=== PATIENT | female | born 1950 | race Caucasian/White ===

== ENCOUNTER → 2019-04-24 16:49 | Outpatient (BNVA) | payer MEDICARE, SELFPAY | PROVIDERS: Family Provider Nurse Practitioner; PCP Nurse Practitioner; Visit Provider Nurse Practitioner | DX: I10 Essential (primary) hypertension (principal); E11.42 Type 2 diabetes mellitus with diabetic polyneuropathy | CPT/HCPCS: 80053; 80061; 83036; 84443 ==

== ENCOUNTER 2019-05-14 12:44 | Outpatient (CLI) | payer MEDICARE, SELFPAY ==
--- NOTE | 2019-05-14 12:53 | CT_ITS ---
WS: [id number] CT LUMBAR SPINE, noncontrast. HISTORY: S/P LUMBAR SPINAL FUSION TECHNIQUE: Contiguous 2.5 mm axial imaging are performed. Sagittal and coronal reformats are submitte d and reviewed. All CT scans at [facility] use at least one of these dose optimization te chniques: automated exposure control; mA and/or kV adjustment per patient size (includes targeted exa ms where dose is matched to clinical indication); or iterative reconstruction. IV contrast: None DLP: 2179.15 mGy.cm COMPARISON: 01/20/2019 RIGHT convex rotoscoliosis lumbar spine. Posterior lumbar fusion at L4-5. Fusion hardware has been pl aced since 01/20/2019. Large posterior laminectomy defects at the fusion level. L1-2: Normal. L2-3: Mild asymmetric disc bulging. No significant stenosis. L3-4: Asymmetric disc bulging to the LEFT. Mild central and foraminal stenosis. L4-5: Widely patent thecal sac due to the large laminectomy defect. Marked facet joint arthropathy. L 4 anterolisthesis by 7.3 mm. L5-S1: No stenosis. Scattered calcifications within the aorta. CT/CT lumbar spine wo con* [id number] IMPRESSION: 1. Interval posterior lumbar fusion at L4-5 with large laminectomy defects. 2. Grade 1 anterolisthesis of L4 by 7.3 mm is stable. 3. No significant residual high-grade stenosis.
== END 2019-05-14 12:45 | disposition home or self-care (01) ==
LOC: RAD 12:50
PROVIDERS: Family Provider Nurse Practitioner; PCP Nurse Practitioner; Visit Provider Licensed Practical Nurse
DX: Z98.1 Arthrodesis status (principal)
CPT/HCPCS: 72131

== ENCOUNTER 2019-08-08 09:03 | Outpatient (CLI) | payer MEDICARE, SELFPAY ==
--- NOTE | 2019-08-08 09:30 | CT_ITS ---
WS: [id number] CT LUMBAR SPINE TECHNIQUE: Noncontrast CT of the lumbar spine with coronal and sagittal reformatted images. CLINICAL INFORMATION: s/p lumbar spinal fusion COMPARISON: CT May 14, 2019 DLP: 1862.[address] scans at [facility] use at least one of these dose optimization techniques: automat ed exposure control; mA and/or kV adjustment per patient size (includes targeted exams where dose is matched to clinical indication); or iterative reconstruction. FINDINGS: S-shaped lumbar scoliosis convex right in the upper lumbar spine and convex left in the lower lumbar spine. Postoperative changes pedicle screw fixation L4-5 with interconnecting rods. Decompressive phillips inectomy defects. Vacuum disc phenomenon L4-5 with stable grade 1 anterolisthesis measuring 7.5 mm. D egenerative endplate-type changes L4-5 eccentric to the right with sclerosis. Hardware appears in goo d position. No evidence of hardware loosening. L1-L2: Mild annular bulging. Spinal canal and foramen are patent. Mild facet arthropathy. L2-L3: Slight retrolisthesis. Annular bulging with narrowing of the left subarticular recess. Mild le ft foraminal narrowing. Right foramen is patent. Mild to moderate facet arthropathy. L3-L4: Mild annular bulging with mild central canal stenosis. Moderate facet arthropathy with ligamen t flavum hypertrophy. Mild left foraminal narrowing with small left foraminal protrusion. Right federico en is patent. L4-L5: Pedicle screw fixation. Stable grade 1 anterolisthesis. Spinal canal is patent with decompress eliana laminectomies. Mild right greater than left foraminal narrowing. L5-S1: Mild annular bulging. Slight retrolisthesis. Spinal canal and foramen are patent. Moderate to advanced right facet arthropathy. Visualized pelvic bony structures: Normal. Paravertebral soft tissues: Normal. CT/CT lumbar spine wo con* [id number] IMPRESSION: 1. Stable postoperative changes L4-5 pedicle screw fixation with interconnecti ng rods. No evidence of hardware loosening. Associated decompressive laminectom ies. 2. Stable 7 mm anterolisthesis L4 on L5. 3. Mild central canal stenosis L3-4. 4. Mild left L3-4 foraminal narrowing. Small left foraminal protrusion. 5. Mild right greater than left L4-5 foraminal narrowing.
== END 2019-08-08 09:04 | disposition home or self-care (01) ==
LOC: RADWPI 09:06
PROVIDERS: Family Provider Nurse Practitioner; PCP Nurse Practitioner; Visit Provider Licensed Practical Nurse
DX: Z98.1 Arthrodesis status (principal); M48.061 Spinal stenosis, lumbar region without neurogenic claudication
CPT/HCPCS: 72131

== ENCOUNTER → 2019-08-27 13:47 | Outpatient (BNVA) | payer MEDICARE, SELFPAY | PROVIDERS: Family Provider Nurse Practitioner; PCP Nurse Practitioner; Visit Provider Nurse Practitioner | DX: E11.42 Type 2 diabetes mellitus with diabetic polyneuropathy (principal); M34.9 Systemic sclerosis, unspecified; I10 Essential (primary) hypertension; K21.9 Gastro-esophageal reflux disease without esophagitis; F41.9 Anxiety disorder, unspecified | CPT/HCPCS: 80053; 80061; 81000; 82044; 83036; 84443; 85025 ==

== ENCOUNTER 2019-11-12 13:39 | Outpatient (CLI) | payer MEDICARE, SELFPAY ==
--- NOTE | 2019-11-12 13:45 | CT_ITS ---
WS: [id number] CT LUMBAR SPINE TECHNIQUE: Noncontrast CT of the lumbar spine with coronal and sagittal reformatted images. CLINICAL INFORMATION: lumbar pain COMPARISON: CT August 08, 2019 DLP: 1739.[address] scans at [facility] use at least one of these dose optimization techniques: automat ed exposure control; mA and/or kV adjustment per patient size (includes targeted exams where dose is matched to clinical indication); or iterative reconstruction. FINDINGS: Stable S-shaped lumbar scoliosis. Postoperative changes pedicle screw fixation L4-5 with interconnect ing rods. Decompressive laminectomy defects. Vacuum disc phenomenon L4-5 with stable grade 1 anteroli sthesis measuring 7.5 mm. Degenerative endplate-type changes L4-5 eccentric to the right with scleros is. Hardware appears in good position. No evidence of hardware loosening. L1-L2: Mild annular bulging. Spinal canal and foramen are patent. Mild facet arthropathy. L2-L3: Slight retrolisthesis. Annular bulging with narrowing of the left subarticular recess. Mild le ft foraminal narrowing. Right foramen is patent. Mild to moderate facet arthropathy. L3-L4: Mild annular bulging with mild central canal stenosis. Moderate facet arthropathy with ligamen t flavum hypertrophy. Mild left foraminal narrowing with small left foraminal protrusion. Right federico en is patent. L4-L5: Pedicle screw fixation. Stable grade 1 anterolisthesis. Spinal canal is patent with decompress eliana laminectomies. Mild right greater than left foraminal narrowing. L5-S1: Mild annular bulging. Slight retrolisthesis. Spinal canal and foramen are patent. Moderate to advanced right facet arthropathy. Visualized pelvic bony structures: Normal. Paravertebral soft tissues: Normal CT/CT lumbar spine wo con* [id number] IMPRESSION: 1. Stable postoperative changes L4-5 pedicle screw fixation with interconnectin g rods and decompressive laminectomies. No evidence of hardware loosening. 2. Stable 7 mm anterolisthesis L4 on L5. 3. Mild central canal stenosis L3-4. Mild left L3-4 foraminal narrowing with sm all left foraminal protrusion unchanged. 5. Mild right L4-5 foraminal narrowing.
== END 2019-11-12 13:40 | disposition home or self-care (01) ==
LOC: RADWPI 13:42
PROVIDERS: Family Provider Nurse Practitioner; PCP Nurse Practitioner; Visit Provider Specialist
DX: M48.061 Spinal stenosis, lumbar region without neurogenic claudication (principal); M47.896 Other spondylosis, lumbar region
CPT/HCPCS: 72131

== ENCOUNTER → 2019-11-17 08:55 | Outpatient (BNVA) | payer MEDICARE, SELFPAY | PROVIDERS: Family Provider Nurse Practitioner; PCP Nurse Practitioner; Visit Provider Nurse Practitioner | DX: I10 Essential (primary) hypertension (principal); K21.9 Gastro-esophageal reflux disease without esophagitis; F41.9 Anxiety disorder, unspecified; M43.16 Spondylolisthesis, lumbar region; E11.42 Type 2 diabetes mellitus with diabetic polyneuropathy; J44.9 Chronic obstructive pulmonary disease, unspecified; Z98.890 Other specified postprocedural states; M34.9 Systemic sclerosis, unspecified; F32.9 Major depressive disorder, single episode, unspecified | CPT/HCPCS: 80053 ==

== ENCOUNTER 2019-11-21 12:55 | Outpatient (CLI) | payer MEDICARE, SELFPAY ==
--- NOTE | 2019-11-21 13:05 | XR_ITS ---
WS: [id number] Thoracic spine, 3 views, 11/21/2019 Clinical Data: pain Comparison: None. Findings: No compression fractures are seen. The disc heights are normal. Osteoporosis is present. The paravertebral regions are unremarkable. There are surgical clips in the region of the gastroesophageal junction and also in the right upper quadrant. XR/XR thoracic spine 3V* [id number] Impression: Negative thoracic spine.
--- NOTE | 2019-11-21 13:05 | XR_ITS ---
WS: [id number] Lumbar spine, 3 views, 11/21/2019 Clinical Data: pain Comparison: Lumbar spine, 03/18/2019. Findings: No compression fractures are seen. There is osteoporosis of all lumbar vertebral bodies along with mi nimal osteoarthritic change There is degenerative disc narrowing at L4-L5. There is a 0.7 cm subluxat ion of L4 on L5. There is a posterior lumbar fusion with bilateral pedicle screws at the L4 and L5 co nnected with Lidya rods. The patient has had an L4 laminectomy. There is a dextroscoliosis.. The transverse processes and SI joints are normal. The bladder is full. There is a large amount of fecal material throughout the colon. XR/XR lumbar spine 2-3V* [id number] Impression: 1. Negative for compression fracture 2. No change in posterior lumbar fusion, subluxation at L4-L5 3. Osteoporosis and minimal osteoarthritis. 4. Dextroscoliosis.
--- NOTE | 2019-11-21 13:05 | XR_ITS ---
WS: [id number] Chest with right rib detail, 11/21/2019 Clinical Data: pain Comparison: PA and lateral chest, 01/14/2019. Findings: The lungs show no nodules, masses, or effusions. The heart is normal. No pneumonia or pneumothorax is seen. There are surgical clips in the region of the gastroesophageal junction and the right upper quadrant. There are posterior lateral rib fractures of the right fifth, sixth, seventh and eighth ribs. No pneu mothorax is seen and there is no subcutaneous emphysema. 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 The soft tissues are nonremarkable. XR/XR ribs RT mn 3V w CXR1V [id number] Impression: 1. Right posterior lateral rib fractures, ribs 5 through 8. 2. Negative for acute cardiopulmonary disease.
== END 2019-11-21 12:56 | disposition home or self-care (01) ==
PROVIDERS: Family Provider Nurse Practitioner; PCP Nurse Practitioner; Visit Provider Nurse Practitioner
DX: M54.6 Pain in thoracic spine (principal); M54.5 Low back pain; M81.0 Age-related osteoporosis without current pathological fracture; M41.86 Other forms of scoliosis, lumbar region; S22.41XA Multiple fractures of ribs, right side, initial encounter for closed fracture; X58.XXXA Exposure to other specified factors, initial encounter
CPT/HCPCS: 71101; 72072; 72100

== ENCOUNTER → 2019-12-19 09:09 | Outpatient (BNVA) | payer MEDICARE, SELFPAY | PROVIDERS: Family Provider Nurse Practitioner; PCP Nurse Practitioner; Visit Provider Internal Medicine | DX: Z20.828 Contact with and (suspected) exposure to other viral communicable diseases (principal) | CPT/HCPCS: 87635 ==

== ENCOUNTER 2019-12-22 08:36 | Outpatient (CLI) | payer MEDICARE, SELFPAY ==
--- NOTE | 2019-12-22 08:45 | USCV_ITS ---
Yazmin Mcneil Age: 69 Gender: F : 1950 Exam Date: 12/22/2019 09:01 Ordering Phys: Armando Penn Technologist: Marciano Tovar [place] [facility] [place]: TACHYCARD[place] BP: / HR: 72 Rhythm: Sinus Technical Quality: Fair MEASUREMENTS (Male / Female) Normal Values 2D ECHO LV Diastolic Diameter PLAX 2.8 cm 4.2 - 5.9 / 3.9 - 5.3 cm LV Systolic Diameter PLAX 1.7 cm IVS Diastolic Thickness 0.8 cm 0.6 - 1.0 / 0.6 - 0.9 cm IVS Systolic Thickness 1.0 cm LVPW Diastolic Thickness 0.7 cm 0.6 - 1.0 / 0.6 - 0.9 cm LVPW Systolic Thickness 1.2 cm LVOT Diameter 2.0 cm LV Ejection Fraction 2D Teich 72.2 % LV Ejection Fraction MOD 2C 59.2 % LV Ejection Fraction 2C AL 59.3 % LA Diameter 3.7 cm LA Width 3.0 cm LA Height 4.0 cm RA Width 3.5 cm RA Height 3.8 cm Aorta at Sinotubular Diameter 1.0 cm M-MODE LV Diastolic Diameter MM 4.4 cm 4.2 - 5.9 / 3.9 - 5.3 cm LV Systolic Diameter MM 2.3 cm LV Ejection Fraction MM Teich 78.2 % IVS Diastolic Thickness MM 1.1 cm 0.6 - 1.0 / 0.6 - 0.9 cm IVS Systolic Thickness MM 1.5 cm LVPW Diastolic Thickness MM 1.2 cm 0.6 - 1.0 / 0.6 - 0.9 cm LVPW Systolic Thickness MM 1.4 cm RV Diastolic Diameter MM 0.0 cm Aortic Annulus Diameter 3.0 cm LA Ao Ratio MM 1.3 MV E Point Septal Separation 0.4 cm DOPPLER AV Peak Velocity 126.0 cm/s LVOT Peak Velocity 99.0 cm/s AV Area Cont Eq vti 2.4 cm squared AV Area Cont Eq pk 2.5 cm squared MV Area PHT 5.0 cm squared Mitral E to A Ratio 0.7 MV E' Velocity 8.0 cm/s Mitral E to MV E' Ratio 11.4 Mitral E to LV E' Lateral Ratio 9.3 Mitral E to LV E' Septal Ratio 14.9 TR Peak Velocity 244.0 cm/s TR Peak Gradient 23.8 mmHg TV Peak E Velocity 135.0 cm/s Right Atrial Pressure 3.0 mmHg Pulmonary Artery Systolic Pressu 26.8 mmHg PV Peak Velocity 87.0 cm/s FINDINGS Left Ventricle Normal left ventricular size, systolic function and wall thickness, with no regional wall motion abnormalities. Left ventricular ejection fraction is estimated at 65%. Grade I diastolic dysfunction (abnormal relaxation filling pattern), normal to mildly elevated filling pressures. Right Ventricle Normal right ventricular size and systolic function. Right ventricular systolic pressure 26.8 mmHg, assuming right atrial pressure of 3 mmHg. Right Atrium Right atrium not well visualized. Left Atrium Normal left atrial size. Mitral Valve Structurally normal mitral valve. No mitral valve stenosis. Trace-mild mitral valve regurgitation. Aortic Valve Structurally normal trileaflet aortic valve. No aortic valve stenosis. No aortic valve regurgitation. Tricuspid Valve Structurally normal tricuspid valve. Trace tricuspid valve regurgitation. Pulmonic Valve Pulmonic valve not well visualized. No significant pulmonary valve regurgitation. Pericardium No pericardial effusion. Inferior vena cava not well visualized. Aorta Normal size aortic root and proximal ascending aorta. CONCLUSIONS 1. Normal left ventricular size, systolic function and wall thickness, with no regional wall motion abnormalities. Left ventricular ejection fraction is estimated at 65%. Grade I diastolic dysfunction (abnormal relaxation filling pattern), normal to mildly elevated filling pressures. 2. Mildly increased pulmonary artery pressure estimated at 27 mmHg. 3. No significant valvular abnormality. 4. When compared to previous echocardiogram dated 12/18/2018, there may not have been any significant change. Angela Gavin MD (Electronically Signed) Final Date: 22 December 2019 16:18 S
--- NOTE | 2019-12-22 10:20 | SPIP_ITS ---
Date of Study:12/22/19 Date of Dictation: MECHANICS: Forced vital capacity (FVC) is normal. Forced expiratory volume in one second (FEV1) is normal. FEV1/FVC is normal. FLOW VOLUME LOOP: Normal. LUNG VOLUMES: Not measured DIFFUSING CAPACITY FOR CARBON MONOXIDE: Not measured. INTERPRETATION: The spirometry is normal. MTDD
== END 2019-12-22 08:37 | disposition home or self-care (01) ==
LOC: US 08:39
PROVIDERS: PCP Nurse Practitioner; Visit Provider Nurse Practitioner
DX: R00.0 Tachycardia, unspecified (principal); I51.81 Takotsubo syndrome
CPT/HCPCS: 93306; 94010

== ENCOUNTER → 2020-02-20 11:33 | Outpatient (BNVA) | payer MEDICARE, SELFPAY | PROVIDERS: PCP Nurse Practitioner; Visit Provider Nurse Practitioner | DX: E11.42 Type 2 diabetes mellitus with diabetic polyneuropathy (principal); I10 Essential (primary) hypertension | CPT/HCPCS: 80061; 81000; 83036; 85025 ==

== ENCOUNTER → 2020-05-10 09:39 | Outpatient (BNVA) | payer MEDICARE, SELFPAY | PROVIDERS: PCP Nurse Practitioner; Visit Provider Nurse Practitioner | DX: M25.531 Pain in right wrist (principal); M25.512 Pain in left shoulder; M25.562 Pain in left knee; I10 Essential (primary) hypertension; E11.42 Type 2 diabetes mellitus with diabetic polyneuropathy; K21.9 Gastro-esophageal reflux disease without esophagitis; Z79.52 Long term (current) use of systemic steroids | CPT/HCPCS: 73030; 73110; 73562; 80053; 81000; 83036 ==

== ENCOUNTER → 2020-06-09 09:19 | Outpatient (BNVA) | payer MEDICARE, SELFPAY | PROVIDERS: PCP Nurse Practitioner; Visit Provider Nurse Practitioner | DX: M25.531 Pain in right wrist (principal) | CPT/HCPCS: 73110 ==

== ENCOUNTER → 2020-06-15 10:52 | Outpatient (BNVA) | payer MEDICARE, SELFPAY | PROVIDERS: PCP Nurse Practitioner; Referring Provider Nurse Practitioner; Visit Provider Orthopaedic Surgery | DX: T14.8XXA Other injury of unspecified body region, initial encounter (principal) | CPT/HCPCS: 73130 ==

== ENCOUNTER 2020-07-02 12:17 | Outpatient (CLI) | payer MEDICARE, SELFPAY ==
--- NOTE | 2020-07-02 12:21 | XR_ITS ---
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 FINDINGS: The left forearm bone mineral density measures 0.74. This corresponds to a T score score of -1.5 and Z score of 0.2. Left femoral neck bone mineral density measures 0.957 g/cm2. This corresponds to a T score of -0.4 an d Z score of 0.8. Right femoral neck bone mineral density measures 1.017 g/cm2. This corresponds to a T score 0.1of and Z score of 1.3. Mean femoral neck bone mineral density measures 0.987 g/cm2. This corresponds to a T score of -0.2 an d Z score of 1.1. XR/XR DEXA axial skeleton* [id number] IMPRESSION: Osteopenia in the left forearm. Normal bone mineralization in the femoral necks . Patient's FRAX calculated 10 year probability for major osteoporotic fracture i s 19.7 % and osteoporotic hip fracture is 3.1%.
== END 2020-07-02 12:18 | disposition home or self-care (01) ==
LOC: RADWPI 12:20
PROVIDERS: PCP Nurse Practitioner; Visit Provider Nurse Practitioner
DX: M85.832 Other specified disorders of bone density and structure, left forearm (principal); Z79.52 Long term (current) use of systemic steroids
CPT/HCPCS: 77080

== ENCOUNTER → 2020-09-29 14:56 | Outpatient (BNVA) | payer MEDICARE, SELFPAY | PROVIDERS: PCP Nurse Practitioner; Visit Provider Nurse Practitioner | DX: E11.42 Type 2 diabetes mellitus with diabetic polyneuropathy (principal); M34.9 Systemic sclerosis, unspecified; I10 Essential (primary) hypertension; M25.531 Pain in right wrist; M79.641 Pain in right hand | CPT/HCPCS: 73110; 73130; 80053; 80061; 82043; 83036; 84443; 85025; 85651 ==

== ENCOUNTER 2020-10-06 13:21 | Emergency (ER) | payer MEDICARE, SELFPAY ==
[2020-10-06] VITALS (7 sets, daily range): BP systolic 98–132; BP diastolic 61–91; PULSE 80–88; RESP 16–20; TEMP 36.8; O2SAT 93–99; BMI 29.7
--- NOTE | 2020-10-06 13:57 | PC.NURSE ---
Patient checked in waiting room and had O2 Sat of 80 % on room air patient reports she uses O2 at night. Patient placed on 02 at 2l.
--- NOTE | 2020-10-06 14:38 | ECG_ITS ---
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 Measurements Intervals [place] Rate: 85 P: 53 GA: 152 QRS: -12 QRSD: 78 T: 53 QT: 345 QTc: 411 Interpretive Statements SINUS RHYTHM MODERATE VOLTAGE CRITERIA FOR LVH, CONSIDER NORMAL VARIANT [MEETS CRITERIA IN ONE OF: R(aVL), S(V1), R(V5), R(V5/V6)+S(V1)] NONSPECIFIC T-WAVE ABNORMALITY Compared to ECG 01/31/2019 15:04:06 T-wave abnormality now present Myocardial infarct finding no longer present Electronically Signed On 10-07-2020 7:02:02 CDT by Angela Gavin M.D. [id number] f
--- NOTE | 2020-10-06 14:38 | XR_ITS ---
WS: [id number] Portable AP upright chest, 10/06/2020 Clinical Data: chest pain Comparison: PA chest, 11/21/2019 Findings: There is a minimal patchy opacity in the left upper lobe No nodules, masses or effusions ar e seen. The heart is normal. The pulmonary vascularity is not increased. No pneumonia or pneumothorax is seen. The aortic arch and descending aorta show tortuosity. There are clips in the upper abdomen from probable gastroesophageal surgery. There are healed right lateral rib fractures of the fifth, si xth and seventh ribs. XR/XR chest 1V portable [id number] Impression: 1. Minimal patchy opacity in left upper lobe and recommend follow-up chest x-ra y in 2-3 days to evaluate for pneumonia. 2. Atherosclerosis.
[2020-10-06 14:53] LABS: ABG PH Result 7.45 (7.35-7.45); Alveolar-Arterial Oxygen Gradi 10.4 mmHg (5-10); Arterial Blood Gas Hematocrit 37.7 % (37-47); Base Excess ABG 4.9 mmol/L (-2.0-2.0); Blood Gas Operator Identificat AMH; Blood Gas Sample Site Brachial, right; Blood Gas Sample Type Arterial; Carboxyhemoglobin 0.4 %THgb (0.4-20.1); HCO3 ABG 29.4 mmol/L (22-26); HGB O2 Sat 91.6 % (95-100); Ionized Calcium Level - ABG 1.2 mmol/L (1.1-1.4); Methemoglobin 0.7 % (0.4-1.5); Oxygen Device NC; Oxygen Saturation ABG 92.6; Potassium Level - ABG 2.9 mmol/L (3.5-5.0); Total Hemoglobin 12.3 g/dL (12-16)
--- NOTE | 2020-10-06 15:21 | W.ED.SOB ---
HPI - SOB/Dyspnea General: Chief Complaint: Shortness of Breath/Dyspnea Stated Complaint: SOB, LOW O2 Time Seen by Provider: 10/06/20 14:29 Source: patient Mode of arrival: ambulatory Limitations: no limitations History of Present Illness: HPI Narrative: Patient states she started short of breath 2 days ago. She states she has had some wheezing recently. She states her temperature at home was 99-100. However, her temperature here was normal. She also has chronic substernal chest pain that she states is due to her chronic esophageal scleroderma. She also has a history of COPD and wears oxygen at 2 L/min at night. She is up-to-date on her Covid vaccines. She is not on any steroids. She states she is allergic to Dilaudid, morphine, codeine, metronidazole, sulfa. She has not had an aspirin today. She states she quit smoking 20 years ago. Her oxygen saturation is 98% on 2 L by nasal cannula. MD elicited complaint: shortness of breath and cough Pertinent past history: COPD Onset (ago): day(s) (2) Timing: intermittent Severity: moderate Exacerbating factors: exertion Relieving factors: oxygen and rest Known history of: COPD and other (Scleroderma) Associated symptoms: Reports chest pain; Deny abdominal pain, chest congestion, cough, diaphoresis, extremity pain, myalgias, nausea, palpitations, paresthesias, syncope or vomiting Related Data: Home oxygen amount: 2 liters (At night) Review of Systems Const: Denies: diaphoresis Eyes: Denies: change in vision ENMT: Denies: throat pain Card: Reports: chest pain and dyspnea on exertion; Denies: palpitations, edema or syncope Resp: Reports: dyspnea and wheezing; Denies: productive cough or chest congestion GI: Denies: abdominal pain, nausea or vomiting : Denies: flank pain Musc: Denies: extremity pain Skin/Breast: Denies: rash or pruritus Neuro: Denies: headache(s) or numbness in extremities Psych: Denies: anxiety Donald/Lymph: Denies: enlarged lymph nodes PFSH ED PFSH: Medical History Acid reflux Anxiety and depression Benign hypertension CKD (chronic kidney disease) COPD mixed type Fibromyalgia Gastro-esophageal reflux disease without esophagitis 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 Nocturnal hypoxemia Spondylolisthesis, lumbar region Type 2 diabetes mellitus with diabetic polyneuropathy Surgical History History of abdominal surgery 1981 small bowel and gallbladder History of colonoscopy 2018 History of hysterectomy with BSO age 39 History of inguinal hernia Left History of lumbar surgery L4-L5/fusion/fixation;February 03, 2019;[facility] [place] History of mastectomy Bilateral 1990 History of rotator cuff surgery left Family History Brother Cancer Family/Other Hypertension Mother Alzheimer disease Father Heart disease Social History Smoking and tobacco status: former smoker Second hand smoke exposure: Yes Smoking risk assessment/counseling performed?: No Alcohol intake: never Desire information about alcohol rehabilitation?: No Counseling given: No Desire information about substance/drug rehabilitation?: No Counseling given: No Adopted: No Caregiver/support person: No Lives independently: Yes Household members: spouse Housing: House Marital status: Number of children: 1 Current occupational status: retired History of recent travel: No Current gender identity: Female Physical Exam Const: COMMON NORMALS: no acute distress, patient oriented x3, no limitations and well nourished EXAM LIMITATIONS: no altered mental status GENERAL APPEARANCE: cooperative HENMT: COMMON NORMALS: normocephalic and atraumatic HEAD & SCALP: normocephalic and atraumatic FACE & SINUS: normal facial exam Eye: COMMON NORMALS: EOMs intact bilaterally Neck/C-Spine: COMMON NORMALS: full ROM, no lymphadenopathy, supple and no meningeal signs GENERAL: Yes normal visual inspection Lymph: LYMPHATIC: no lymphadenopathy noted Chest: COMMONS NORMALS: normal inspection of the chest and normal palpation of entire chest wall CHEST: No Ecchymosis present and No rash Resp: COMMON NORMALS: normal respiratory effort and No retractions EFFORT & INSPECTION: No respiratory distress AUSCULTATION: other (Rare crackles in the bases bilaterally, no wheezing. No respiratory distre) OTHER: Patient reportedly had oxygen saturation of 78% on room air in triage. Her oxygen saturation is 98% on 2 L by nasal cannula. Cardio: COMMON NORMALS: regular rate, regular rhythm and Peripheral pulses 2+ throughout JUGULAR VENOUS DISTENTION: no JVD RATE: regular rate RHYTHM: regular rhythm PERIPHERAL PULSES: Peripheral pulses 2+ throughout GI: COMMON NORMALS: Normal to inspection, nondistended, normoactive bowel sounds present and non-tender : COMMON NORMALS: Yes no CVA tenderness BLADDER/KIDNEY EXAM: Yes no CVA tenderness Back/Pelvis: COMMON NORMALS: no CVA tenderness Extremity: COMMON NORMALS: normal to inspection, full ROM and capillary refill normal Neuro: COMMON NORMALS: patient oriented x3, CN's II-XII intact bilaterally, no focal motor deficits and no sensory deficits noted MENINGEAL SIGNS: Yes no meningeal signs Psych: COMMON NORMALS: mental status grossly normal and Normal thought process present THOUGHT PROCESS: Normal thought process present Skin: COMMON NORMALS: no rashes or lesions noted and no wounds GENERAL SKIN EXAM: no rashes or lesions noted Course Vital Signs: Vital signs: Vital Signs Temperature 98.2 F 10/06/20 14:02 Pulse Rate 80 10/06/20 18:05 Respiratory Rate 18 10/06/20 18:05 Blood Pressure 126/80 10/06/20 18:05 Pulse Oximetry 95 10/06/20 18:05 MDM - SOB/Dyspnea MDM Narrative: Medical decision making narrative: 1840: Patient declined admission. I recommend admission for her hypoxia and pneumonia diagnosis. CT angiogram showed no pulmonary embolus. Patient requests that IV antibiotics be given patient be discharged home with oral antibiotic prescription. Lab Data: Attestation: I reviewed the patient's lab results. Labs: Lab Results 10/06/20 10/06/20 10/06/20 Range/Units 14:41 15:25 15:48 WBC 9.6 (4.0-10.0) 10^3/ uL RBC 4.32 (4.1-5.3) 10^6/u L Hgb 12.4 (11.5-15.3) g/dL Hct 39.2 (37.0-47.0) % MCV 90.7 (81-99) fL MCH 28.7 (28.0-34.0) pg MCHC 31.6 (30.0-36.0) g/dL RDW 13.1 (12.1-15.1) % Plt Count 448 H (130-400) 10^3/c mm MPV 9.5 (7.4-10.4) fL Neut % (Auto) 60.6 % Lymph % (Auto) 13.5 % Bartholomew % (Auto) 10.3 % Eos % (Auto) 14.5 % Baso % (Auto) 0.6 % Neut # (Auto) 5.79 (1.8-7.7) 10^3/u L Lymph # (Auto) 1.3 (0.8-4.8) 10^3/u L Bartholomew # (Auto) 1.0 H (0.2-0.9) 10^3/u L Eos # (Auto) 1.4 H (0.0-0.8) 10^3/u L Baso # (Auto) 0.1 (0.0-0.1) 10^3/u L Nucleated RBC % (a uto) 0 % Nucleated RBCs # 0.0 /100WBC PT (12.1-14.9) SECO NDS INR (0.8-1.2) APTT (23.9-36.7) SECO NDS D-Dimer (0-0.59) ug/mIFE U Specimen Type Arterial Sample Site Brachial, right ABG pH 7.45 (7.35-7.45) ABG pCO2 42.0 (35-45) mmHg ABG pO2 68.0 L (80.0-100.0) mmH g ABG HCO3 29.4 H (22-26) mmol/L ABG O2 Saturation 92.6 ABG Base Excess 4.9 H (-2.0-2.0) mmol/ L Ismael Test N/a A-a O2 Gradient 10.4 H (5-10) mmHg Hematocrit 37.7 (37-47) % Hgb O2 Saturation 91.6 L (95-100) % Carboxyhemoglobin 0.4 (0.4-20.1) %THgb Methemoglobin 0.7 (0.4-1.5) % Total Hemoglobin 12.3 (12-16) g/dL Sodium 135.0 (131-143) mmol/L Potassium 2.9 L (3.5-5.0) mmol/L Glucose 146.0 H (70-115) mg/dL Ionized Calcium 1.2 (1.1-1.4) mmol/L O2 Delivery Device Nc O2 Liters/Min 2.0 % FiO2 28.0 % Supervisor Wall Mirror Department ID Amh Chloride (98-107) mmol/L Carbon Dioxide (22-29) mmol/L Anion Gap (5-19) BUN (8-23) mg/dL Creatinine (0.5-0.9) mg/dL GFR Calculation (90-130) mL/min Calculated Osmolal ity (285-295) mOsm/k g Calcium (8.5-10.5) mg/dL Troponin T Baselin e (0-10) ng/L Troponin T 120 Min beaver (0-10) ng/L Delta Troponin T (0-10) ABS# NT-Pro-B Natriuret Pep (0-125) pg/mL SARS-CoV-2 Ag (Rap id) Negative (Negative) 10/06/20 10/06/20 10/06/20 Range/Units 15:48 15:48 15:48 WBC (4.0-10.0) 10^3/ uL RBC (4.1-5.3) 10^6/u L Hgb (11.5-15.3) g/dL Hct (37.0-47.0) % MCV (81-99) fL MCH (28.0-34.0) pg MCHC (30.0-36.0) g/dL RDW (12.1-15.1) % Plt Count (130-400) 10^3/c mm MPV (7.4-10.4) fL Neut % (Auto) % Lymph % (Auto) % Bartholomew % (Auto) % Eos % (Auto) % Baso % (Auto) % Neut # (Auto) (1.8-7.7) 10^3/u L Lymph # (Auto) (0.8-4.8) 10^3/u L Bartholomew # (Auto) (0.2-0.9) 10^3/u L Eos # (Auto) (0.0-0.8) 10^3/u L Baso # (Auto) (0.0-0.1) 10^3/u L Nucleated RBC % (a uto) % Nucleated RBCs # /100WBC PT 13.70 (12.1-14.9) SECO NDS INR 1.02 (0.8-1.2) APTT 31.5 (23.9-36.7) SECO NDS D-Dimer 3.23 H (0-0.59) ug/mIFE U Specimen Type Sample Site ABG pH (7.35-7.45) ABG pCO2 (35-45) mmHg ABG pO2 (80.0-100.0) mmH g ABG HCO3 (22-26) mmol/L ABG O2 Saturation ABG Base Excess (-2.0-2.0) mmol/ L Ismael Test A-a O2 Gradient (5-10) mmHg Hematocrit (37-47) % Hgb O2 Saturation (95-100) % Carboxyhemoglobin (0.4-20.1) %THgb Methemoglobin (0.4-1.5) % Total Hemoglobin (12-16) g/dL Sodium 134 L (131-143) mmol/L Potassium 3.7 (3.5-5.0) mmol/L Glucose 107 (70-115) mg/dL Ionized Calcium (1.1-1.4) mmol/L O2 Delivery Device O2 Liters/Min % FiO2 % Supervisor Wall Mirror Department ID Chloride 95 L (98-107) mmol/L Carbon Dioxide 29 (22-29) mmol/L Anion Gap 13.7 (5-19) BUN 10 (8-23) mg/dL Creatinine 0.9 (0.5-0.9) mg/dL GFR Calculation 62.1 L (90-130) mL/min Calculated Osmolal ity 278 L (285-295) mOsm/k g Calcium 8.7 (8.5-10.5) mg/dL Troponin T Baselin e 20 H (0-10) ng/L Troponin T 120 Min beaver (0-10) ng/L Delta Troponin T (0-10) ABS# NT-Pro-B Natriuret Pep 160 H (0-125) pg/mL SARS-CoV-2 Ag (Rap id) (Negative) 10/06/20 Range/Units 17:45 WBC (4.0-10.0) 10^3/ uL RBC (4.1-5.3) 10^6/u L Hgb (11.5-15.3) g/dL Hct (37.0-47.0) % MCV (81-99) fL MCH (28.0-34.0) pg MCHC (30.0-36.0) g/dL RDW (12.1-15.1) % Plt Count (130-400) 10^3/c mm MPV (7.4-10.4) fL Neut % (Auto) % Lymph % (Auto) % Bartholomew % (Auto) % Eos % (Auto) % Baso % (Auto) % Neut # (Auto) (1.8-7.7) 10^3/u L Lymph # (Auto) (0.8-4.8) 10^3/u L Bartholomew # (Auto) (0.2-0.9) 10^3/u L Eos # (Auto) (0.0-0.8) 10^3/u L Baso # (Auto) (0.0-0.1) 10^3/u L Nucleated RBC % (a uto) % Nucleated RBCs # /100WBC PT (12.1-14.9) SECO NDS INR (0.8-1.2) APTT (23.9-36.7) SECO NDS D-Dimer (0-0.59) ug/mIFE U Specimen Type Sample Site ABG pH (7.35-7.45) ABG pCO2 (35-45) mmHg ABG pO2 (80.0-100.0) mmH g ABG HCO3 (22-26) mmol/L ABG O2 Saturation ABG Base Excess (-2.0-2.0) mmol/ L Ismael Test A-a O2 Gradient (5-10) mmHg Hematocrit (37-47) % Hgb O2 Saturation (95-100) % Carboxyhemoglobin (0.4-20.1) %THgb Methemoglobin (0.4-1.5) % Total Hemoglobin (12-16) g/dL Sodium (131-143) mmol/L Potassium (3.5-5.0) mmol/L Glucose (70-115) mg/dL Ionized Calcium (1.1-1.4) mmol/L O2 Delivery Device O2 Liters/Min % FiO2 % Supervisor Wall Mirror Department ID Chloride (98-107) mmol/L Carbon Dioxide (22-29) mmol/L Anion Gap (5-19) BUN (8-23) mg/dL Creatinine (0.5-0.9) mg/dL GFR Calculation (90-130) mL/min Calculated Osmolal ity (285-295) mOsm/k g Calcium (8.5-10.5) mg/dL Troponin T Baselin e (0-10) ng/L Troponin T 120 Min beaver 19.71 H (0-10) ng/L Delta Troponin T -0.29 L (0-10) ABS# NT-Pro-B Natriuret Pep (0-125) pg/mL SARS-CoV-2 Ag (Rap id) (Negative) ABG shows mild hypoxia. Imaging Data^: CXR: Attestation: I personally reviewed and interpreted this imaging study as follows: My impression: Mild pulmonary congestion Radiologist's impression: [employer] [place], [place] [address]HXoe ReportSigned Patient: Yazmin Mcneil #: [id number]: 2Acct#:[id number]/Sex: 70 / FADM Date: 10/06/20Loc: [facility]/Bed:Attending Dr: Ordering Provider/Ordering MD: Omari Kimble MD Date of Service: 10/06/20 Procedure(s): XR chest 1V portable [id number] Accession Number(s): [id number] Report Number: [id number] WS: [id number] Portable AP upright chest, 10/06/2020 Clinical Data: chest pain Comparison: PA chest, 11/21/2019 Findings: There is a minimal patchy opacity in the left upper lobe No nodules, masses or effusions are seen. The heart is normal. The pulmonary vascularity is not increased. No pneumonia or pneumothorax is seen. The aortic arch and descending aorta show tortuosity. There are clips in the upper abdomen from probable gastroesophageal surgery. There are healed right lateral rib fractures of the fifth, sixth and seventh ribs. XR/XR chest 1V portable [id number] Impression: 1. Minimal patchy opacity in left upper lobe and recommend follow-up chest x-ray in 2-3 days to evaluate for pneumonia. 2. Atherosclerosis. Dictated By:Bhumika Atwood MDSigned By:Bhumika Atwood MDSigned Date/Time:10/06/20 1459 CTA Chest: Radiologist's impression: [place] [address] [facility], [place] [address] Scan ReportSigned Patient: Yazmin Mcneil #: [id number]: 1950cc#:[id number]/Sex: 70 / FADM Date: 10/06/20Loc: [facility]/Bed:Attending Dr: Ordering Provider/Ordering MD: Omari Kimble MD Date of Service: 10/06/20 Procedure(s): CT angio chest PE protcl [id number] Accession Number(s): [id number] Report Number: [id number] PROCEDURE INFORMATION: Exam: CTA Chest With Contrast Exam date and time: 10/06/2020 5:00 PM Age: 70 years old Clinical indication: Pain and abnormal findings; Abnormal diagnostic tests; Elevated d-dimer; Shortness of breath; Sternal or substernal pain; Prior surgery; Surgery type: Gb, mastectomy; Additional info: Shortness of breath; Hypoxia; Ddimer 3.23 TECHNIQUE: Imaging protocol: Computed tomographic angiography of the chest with contrast. 3D rendering (Not supervised by radiologist): MIP and/or 3D reconstructed images were created by the technologist. Radiation optimization: All CT scans at this facility use at least one of these dose optimization techniques: automated exposure control; mA and/or kV adjustment per patient size (includes targeted exams where dose is matched to clinical indication); or iterative reconstruction. Contrast material: VISI 320; Contrast volume: 67 ml; Contrast route: INTRAVENOUS (IV); COMPARISON: CT Chest/Abdomen/Pelvis w IV* 12/05/2018 9:50 AM RADIATION DOSE METRICS: Total DLP (mGy-cm): 498 FINDINGS: Pulmonary arteries: Normal. No pulmonary emboli. Aorta: Unremarkable. No aortic aneurysm. No aortic dissection. Lungs: Emphysematous changes. Patchy bilateral airspace opacities suggestive of an underlying infectious process. Pleural spaces: Unremarkable. No pneumothorax. No pleural effusion. Heart: Coronary artery atherosclerotic calcifications. Mediastinal space: Surgical clips about the diaphragmatic hiatus. Lymph nodes: Scattered prominent mediastinal and subcarinal lymph nodes measuring up to 13 mm, nonspecific, increased in size and number compared to prior exam. Gallbladder and bile ducts: Cholecystectomy. Minimal pneumobilia likely chronic. Bones/joints: Several chronic right posterior rib fractures. Soft tissues: Unremarkable. CT/CT angio chest PE protcl [id number] IMPRESSION: 1. Negative for pulmonary embolus. 2. Cholecystectomy. 3. Surgical clips about the diaphragmatic hiatus. 4. Emphysematous changes. 5. Patchy bilateral airspace opacities suggestive of an underlying infectious process. 6. Coronary artery atherosclerotic calcifications. 7. Scattered prominent mediastinal and subcarinal lymph nodes measuring up to 13 mm, nonspecific, increased in size and number compared to prior exam. 8. Several chronic right posterior rib fractures. 9. Minimal pneumobilia likely chronic. Radiation Dose CTDIVOL = (mGy): DLP = 498 (mGy-cm) Dictated By:Oswaldo Tran MDSigned By:Oswaldo Tran MDSigned Date/Time:10/06/201835 EKG Data^: EKG 1: Attestation: I personally reviewed and interpreted this EKG as follows: EKG Interpretation Date: 10/06/20 EKG interpretation time: 14:15 Prior EKG tracings: not available for review Interpretation: Normal sinus rhythm, left axis, nonspecific IVCD, nonspecific ST-T changes. Normal P wave. Mild left axis, normal T waves. Normal IA interval, normal P waves. Impression normal sinus rhythm with nonspecific ST-T changes mild left axis, minimal IVCD Critical Care Time Critical Care Time: Critical Care Time: Yes Total Critical Care Time: 45 Attestation: Hypoxia with ox saturation 78% in triage. See orders Discharge Plan Discharge Patient Disposition: Home Clinical Impression: MELTON (dyspnea on exertion) Community acquired pneumonia of left lung Qualifiers: Lung location: upper lobe of lung Qualified Code(s): J18.9 - Pneumonia, unspecified organism COPD (chronic obstructive pulmonary disease) Qualifiers: COPD type: COPD with acute exacerbation Qualified Code(s): J44.1 - Chronic obstructive pulmonary disease with (acute) exacerbation Condition: Stable Prescriptions: New cephalexin 500 mg capsule 500 mg PO QID 7 Days Qty: 28 RF: 0 azithromycin 250 mg tablet See Rx Instructions .ROUTE .COMPLEX Qty: 6 RF: 0 No Action cholecalciferol (vitamin D3) 25 mcg (1,000 unit) capsule 25 mcg PO DAILY@0800 RF: 0 mecobalamin (vitamin B12) 1,000 mcg tablet,chewable 1,000 mcg PO DAILY@0800 RF: 0 (DME) Diabetic shoes See Rx Instructions .Route .MEDSUPPLY Qty: 1 RF: 0 (DME) OneTouch Ultra Blue Test Strip Strip See Rx Instructions .ROUTE .MEDSUPPLY Qty: 100 RF: 4 albuterol sulfate 2.5 mg /3 mL (0.083 %) solution for nebulization 2.5 mg INHALATION QID PRN (Reason: shortness of breath or wheezing) Qty: 300 RF: 5 albuterol sulfate [Proventil HFA] 90 mcg/actuation HFA aerosol inhaler 2 puff inhalation QID PRN (Reason: shortness of breath or wheezing) Qty: 8.5 RF: 2 Lasix 40 mg tablet 40 mg PO DAILY@0800 RF: 0 gabapentin 600 mg tablet 600 mg PO TID@08,,21 RF: 0 Paxil 10 mg tablet 5 mg PO DAILY@0800 RF: 0 pravastatin 40 mg tablet 40 mg PO DAILY@0800 RF: 0 Norvasc 5 mg tablet 5 mg PO DAILY@0800 RF: 0 Mobic 7.5 mg tablet 7.5 mg PO DAILY@0800 RF: 0 Pepcid 20 mg tablet 20 mg PO BID@0800,2100 RF: 0 benazepril 10 mg tablet 10 mg PO DAILY@0800 RF: 0 oxybutynin chloride 5 mg tablet 5 mg PO BID@0800,2100 RF: 0 cyclobenzaprine 5 mg tablet 5 mg PO TID@08,,21 RF: 0 dexlansoprazole 60 mg capsule,biphase delayed releas 60 mg PO DAILY@2100 RF: 0 Discharge Orders: Discharge ED (Routine); Ordered 10/06/20 Ordered By: Omari Kimble Referrals: Armando Penn, ELECTRICIAN CONSTRUCTOR SUPERVISOR-C [Primary Care Provider] - Discharge Diet: Advance as tolerated Discharge Activity: Limit activity as instructed Patient Instructions: Community-acquired Pneumonia (ED), Dyspnea (ED) Activity Restrictions/Additional Instructions: Start cephalexin and Zithromax antibiotic tomorrow. Continue to wear oxygen at all times at 2 L/min. Return if any worsening of your condition. Coding Level of Care Code ED Piston Maker for Chg Fwd Exam Comprehensive
[2020-10-06 15:52] LABS: SARS Covid-2 Antigen Negative (Negative)
[2020-10-06 15:57] LABS: Basophils # 0.1 10^3/uL (0.0-0.1); Basophils % 0.6 %; Eosinophils # 1.4 10^3/uL (0.0-0.8); Eosinophils % 14.5 %; Hematocrit 39.2 % (37.0-47.0); Hemoglobin 12.4 g/dL (11.5-15.3); Lymphocytes # 1.3 10^3/uL (0.8-4.8); Lymphocytes % 13.5 %; Mean Corpuscular HGB Conc 31.6 g/dL (30.0-36.0); Mean Corpuscular Hemoglobin 28.7 pg (28.0-34.0); Mean Corpuscular Volume 90.7 fL (81-99); Mean Platelet Volume 9.5 fL (7.4-10.4); Monocytes % 10.3 %; Neutrophils # 5.79 10^3/uL (1.8-7.7); Neutrophils % 60.6 %; Nucleated Red Blood Cells % 0 %; Platelet Count 448 10^3/cmm (130-400); Red Blood Count 4.32 10^6/uL (4.1-5.3); Red Cell Distribution Width 13.1 % (12.1-15.1); White Blood Count 9.6 10^3/uL (4.0-10.0)
[2020-10-06 16:25] LABS: Troponin(5th) Baseline 20 ng/L (0-10)
[2020-10-06 16:27] LABS: INR 1.02 (0.8-1.2); Partial Thromboplastin Time 31.5 SECONDS (23.9-36.7)
[2020-10-06 16:30] LABS: D Dimer 3.23 ug/mIFEU (0-0.59)
[2020-10-06 16:33] LABS: Anion Gap 13.7 (5-19); Blood Urea Nitrogen 10 mg/dL (8-23); Calcium 8.7 mg/dL (8.5-10.5); Carbon Dioxide 29 mmol/L (22-29); Chloride 95 mmol/L (98-107); Glomerular Filtration Rate 62.1 mL/min (90-130); Glucose 107 mg/dL (65-115); NT Pro B Type Natriuretic Pept 160 pg/mL (0-125); Osmolality Calculated 278 mOsm/kg (285-295); Potassium 3.7 mmol/L (3.5-5.1); Sodium 134 mmol/L (136-145)
--- NOTE | 2020-10-06 16:38 | ECG_ITS ---
[facility] Test Date: 2020-10-06 Pat Name: Yazmin Mcneil Department: Room: Gender: Female Director Surface Transportation: : 1950 Requested By: Omari Tapia Order Number: [id number] Hernán MD: Angela Gavin M.D. Measurements Intervals [place] Rate: 77 P: 48 ID: [id number] QRS: -10 QRSD: 84 T: 61 QT: 363 QTc: 413 Interpretive Statements SINUS RHYTHM POSSIBLE LEFT ATRIAL ENLARGEMENT [-0.1mV P WAVE IN V1/V2] POSSIBLE LEFT VENTRICULAR HYPERTROPHY [VOLTAGE CRITERIA PLUS LAE OR QRS WIDENING] NONSPECIFIC T-WAVE ABNORMALITY Compared to ECG 10/06/2020 14:11:46 No significant changes Electronically Signed On 10-07-2020 7:14:05 CDT by Angela Gavin M.D. [id number]
--- NOTE | 2020-10-06 17:00 | CTR_ITS ---
PROCEDURE INFORMATION: Exam: CTA Chest With Contrast Exam date and time: 10/06/2020 5:00 PM Age: 70 years old Clinical indication: Pain and abnormal findings; Abnormal diagnostic tests; Elevated d-dimer; Shortness of breath; Sternal or substernal pain; Prior surgery; Surgery type: Gb, mastectomy; Additional info: Shortness of breath; Hypoxia; Ddimer 3.23 TECHNIQUE: Imaging protocol: Computed tomographic angiography of the chest with contrast. 3D rendering (Not supervised by radiologist): MIP and/or 3D reconstructed images were created by the technologist. Radiation optimization: All CT scans at this facility use at least one of these dose optimization techniques: automated exposure control; mA and/or kV adjustment per patient size (includes targeted exams where dose is matched to clinical indication); or iterative reconstruction. Contrast material: VISI 320; Contrast volume: 67 ml; Contrast route: INTRAVENOUS (IV); COMPARISON: CT Chest/Abdomen/Pelvis w IV* 12/05/2018 9:50 AM RADIATION DOSE METRICS: Total DLP (mGy-cm): 498 FINDINGS: Pulmonary arteries: Normal. No pulmonary emboli. Aorta: Unremarkable. No aortic aneurysm. No aortic dissection. Lungs: Emphysematous changes. Patchy bilateral airspace opacities suggestive of an underlying infectious process. Pleural spaces: Unremarkable. No pneumothorax. No pleural effusion. Heart: Coronary artery atherosclerotic calcifications. Mediastinal space: Surgical clips about the diaphragmatic hiatus. Lymph nodes: Scattered prominent mediastinal and subcarinal lymph nodes measuring up to 13 mm, nonspecific, increased in size and number compared to prior exam. Gallbladder and bile ducts: Cholecystectomy. Minimal pneumobilia likely chronic. Bones/joints: Several chronic right posterior rib fractures. Soft tissues: Unremarkable. CT/CT angio chest PE protcl [id number] IMPRESSION: 1. Negative for pulmonary embolus. 2. Cholecystectomy. 3. Surgical clips about the diaphragmatic hiatus. 4. Emphysematous changes. 5. Patchy bilateral airspace opacities suggestive of an underlying infectious process. 6. Coronary artery atherosclerotic calcifications. 7. Scattered prominent mediastinal and subcarinal lymph nodes measuring up to 13 mm, nonspecific, increased in size and number compared to prior exam. 8. Several chronic right posterior rib fractures. 9. Minimal pneumobilia likely chronic. Radiation Dose CTDIVOL = (mGy): DLP = 498 (mGy-cm)
[2020-10-06] MEDS: iodixanol 320 mg/mL 100mL Btl IV (17:50)
[2020-10-06 18:30] LABS: Troponin 5 2HR 19.71 ng/L (0-10)
[2020-10-06 18:33] LABS: Troponin 5 2HR Delta -0.29 ABS# (0-10)
[2020-10-06] MEDS: cefTRIAXone 1,000 MG in sodium chloride 0.9% (plus) 50 ML 100 MG IV (19:30)
[2020-10-06] MEDS: azithromycin 500 MG in sodium chloride 0.9% 250 ML 250 MG IV (19:32)
== END 2020-10-06 21:40 | disposition home or self-care (01) ==
PROVIDERS: Emergency Provider Family Medicine; PCP Nurse Practitioner
DX: J44.1 Chronic obstructive pulmonary disease with (acute) exacerbation (principal); R06.00 Dyspnea, unspecified; J18.9 Pneumonia, unspecified organism; I10 Essential (primary) hypertension; J44.9 Chronic obstructive pulmonary disease, unspecified; E11.42 Type 2 diabetes mellitus with diabetic polyneuropathy; Z77.22 Contact with and (suspected) exposure to environmental tobacco smoke (acute) (chronic)
CPT/HCPCS: 36600; 71045; 71275; 80048; 80051; 82330; 82805; 83880; 84484; 85025; 85378; 85610; 85730; 87040; 87426; 93005; 96365; 96367; 99284; J0456; J0696; J7050; Q9967

== ENCOUNTER → 2020-10-13 09:43 | Outpatient (BNVA) | payer MEDICARE, SELFPAY | PROVIDERS: PCP Nurse Practitioner; Visit Provider Nurse Practitioner | DX: E87.6 Hypokalemia (principal); J18.9 Pneumonia, unspecified organism | CPT/HCPCS: 80048; 85025 ==

== ENCOUNTER → 2020-10-19 13:41 | Outpatient (BNVA) | payer MEDICARE, SELFPAY | PROVIDERS: PCP Nurse Practitioner; Visit Provider Nurse Practitioner | DX: J44.9 Chronic obstructive pulmonary disease, unspecified (principal); J18.9 Pneumonia, unspecified organism | CPT/HCPCS: 71046 ==

== ENCOUNTER → 2020-11-18 08:52 | Outpatient (BNVA) | payer MEDICARE, SELFPAY | PROVIDERS: PCP Nurse Practitioner; Visit Provider Internal Medicine Pulmonary Disease | DX: Z01.812 Encounter for preprocedural laboratory examination (principal); Z20.822 Contact with and (suspected) exposure to COVID-19 | CPT/HCPCS: 87635 ==

== ENCOUNTER 2020-11-23 07:48 | Outpatient (CLI) | payer MEDICARE, SELFPAY ==
--- NOTE | 2020-11-23 10:02 | PFTS_ITS ---
Date of Study:11/23/20 Date of Dictation: 12/03/2020 MECHANICS: Forced vital capacity (FVC) is reduced. Forced expiratory volume in one second (FEV1) is reduced. FEV1/FVC is normal. There is no significant response to bronchodilators.. FLOW VOLUME LOOP: Normal . LUNG VOLUMES: Total lung capacity (TLC) is reduced. Residual volume (RV) is moderately reduced. DIFFUSING CAPACITY FOR CARBON MONOXIDE: Moderately reduced 8% . INTERPRETATION: The pulmonary function tests are consistent with moderate restriction. There is moderate gas transfer defect. Clinical correlation recommended. MTDD
== END 2020-11-23 07:49 | disposition home or self-care (01) ==
PROVIDERS: PCP Nurse Practitioner; Visit Provider Internal Medicine Pulmonary Disease
DX: M34.9 Systemic sclerosis, unspecified (principal)
CPT/HCPCS: 94060; 94618; 94726; 94729; J7611

== ENCOUNTER → 2020-12-22 08:42 | Outpatient (BNVA) | payer MEDICARE, SELFPAY | PROVIDERS: PCP Nurse Practitioner; Visit Provider Internal Medicine Rheumatology | DX: M34.9 Systemic sclerosis, unspecified (principal); I27.20 Pulmonary hypertension, unspecified; J84.9 Interstitial pulmonary disease, unspecified; Z79.899 Other long term (current) drug therapy; Z11.59 Encounter for screening for other viral diseases; Z11.1 Encounter for screening for respiratory tuberculosis; I73.00 Raynaud's syndrome without gangrene; M25.50 Pain in unspecified joint; Z71.89 Other specified counseling | CPT/HCPCS: 36415; 73130; 73630; 80076; 86235; 86480; 86704; 86803; 87340; 99214; 99215 ==

== ENCOUNTER 2020-12-22 10:42 | Outpatient (CLI) | payer MEDICARE, SELFPAY ==
--- NOTE | 2020-12-22 10:56 | XR_ITS ---
WS: [id number] XR foot RT min 3V* [id number] REASON FOR EXAM: Z79.899 - Other [facility] (current) drug therapy FINDINGS: In the forefoot there is mild narrowing of the joint spaces with subchondral sclerosis in the DIP and MIP joints of the first through the fifth toes. There is severe joint space narrowing and subchondral sclerosis with osteophytic spurring in the meta carpal phalangeal joint of the great toe. There is not a significant subluxation at this joint. There is mild narrowing of the joint spaces in the mid and hindfoot without significant bony abnormal ity. Small enthesophytes from the calcaneus at the Achilles tendon and plantar ligament insertion. XR/XR foot RT min 3V* [id number] IMPRESSION: Osteoarthritis of the right foot as above.
--- NOTE | 2020-12-22 10:56 | XR_ITS ---
WS: [id number] XR hand RT min 3V* [id number] REASON FOR EXAM: Z79.899 - Other [facility] (current[facility] drug therapy FINDINGS: Arthropathy of the hand characterized by joint space narrowing with subchondral sclerosis and margina l osteophyte formation. This is most notable in the DIP and MIP joints of the second through the fift h right fingers. Similar arthropathic changes seen in the joints of the right thumb, most notably the carpal metacarpal joint. There is joint space narrowing in the metacarpal phalangeal joints of the second through the fifth ri ght fingers Old healed fracture of the distal right radius XR/XR hand RT min 3V* [id number] IMPRESSION: Osteoarthritis of the hand as above.
--- NOTE | 2020-12-22 10:56 | XR_ITS ---
WS: [id number] XR hand LT min 3V* [id number] REASON FOR EXAM: Z79.899 - Other halfway (current) drug therapy FINDINGS: There is an arthropathy of the left hand characterized by joint space narrowing, subchondral sclerosi s, and marginal osteophytes. This is most notable in the MIP and DIP joints of the second through the fifth fingers. The carpal metacarpal joint being most severe. There is also narrowing of the metacarpal phalangeal joints of the second through the fourth left fin gers. XR/XR hand LT min 3V* [id number] IMPRESSION: Osteoarthritis of the left hand as above.
--- NOTE | 2020-12-22 10:56 | XR_ITS ---
WS: [id number] XR foot LT min 3V* [id number] REASON FOR EXAM: Z79.899 - Other mcc (current) drug therapy FINDINGS: In the forefoot there is mild joint space narrowing and subchondral sclerosis in the MIP and DIP join ts of the left first of the fifth toes. There is a more significant narrowing of the joint space with subchondral sclerosis in the MP joint o f the left great toe. No subluxation at this joint. There is mild narrowing of the joint spaces in the left mid and hindfoot without significant bony or soft tissue abnormality. Small enthesophyte at the insertion of the plantar ligament on the calcaneus . XR/XR foot LT min 3V* [id number] IMPRESSION: Osteoarthritis of the left foot as above.
[2020-12-22 12:36] LABS: Alanine Aminotransferase 19 U/L (0-33); Albumin Level 4.6 g/dL (3.5-5.2); Alkaline Phosphatase 134 IU/L (35-105); Aspartate Amino Transferase 26 U/L (0-32); Globulin 2.4 g/dL (1.3-4.6); Total Bilirubin 0.2 mg/dL (0.15-1.2)
[2020-12-22 12:53] LABS: Hepatitis B Core AB, Total Non-Reactive (Nonreactive); Hepatitis B Surface Antigen Non-Reactive (Nonreactive); Hepatitis C Virus Antibody Non-Reactive (Nonreactive)
[2020-12-23 15:29] LABS: Centromere B Antibody <1.0 NEG AI (<1.0 NEG); Cyclic Citrullinated Peptide <16 UNITS; SCL 70 <1.0 NEG AI (<1.0 NEG)
[2020-12-24 15:07] LABS: Quantiferon Mitogen 8.84 IU/mL; Quantiferon Nil 0.03 IU/mL; Quantiferon Plus TB1 0.02 IU/mL; Quantiferon Plus TB2 0.02 IU/mL; Quantiferon TB Gold NEGATIVE (NEGATIVE)
== END 2020-12-22 10:43 | disposition home or self-care (01) ==
LOC: RAD 10:53
PROVIDERS: PCP Nurse Practitioner; Visit Provider Internal Medicine Rheumatology
DX: M25.50 Pain in unspecified joint (principal); M34.9 Systemic sclerosis, unspecified; Z79.899 Other long term (current) drug therapy; Z11.59 Encounter for screening for other viral diseases; Z11.1 Encounter for screening for respiratory tuberculosis
CPT/HCPCS: 36415; 73130; 73630; 80076; 86235; 86480; 86704; 86803; 87340

== ENCOUNTER 2020-12-28 13:51 | Outpatient (CLI) | payer MEDICARE, SELFPAY ==
--- NOTE | 2020-12-28 13:59 | USCV_ITS ---
Yazmin Mcneil Age: 70 Gender: F : 1950 Exam Date: 12/28/2020 14:10 Ordering Phys: Angela Gavin MD ([email or web address]) Technologist: Ignacia Donald [place] [facility] [place]: sob BP: 140 / 78 HR: 74 Rhythm: Sinus Technical Quality: Adequate MEASUREMENTS (Male / Female) Normal Values 2D ECHO LV Diastolic Diameter PLAX 2.9 cm 4.2 - 5.9 / 3.9 - 5.3 cm LV Systolic Diameter PLAX 1.6 cm IVS Diastolic Thickness 1.2 cm 0.6 - 1.0 / 0.6 - 0.9 cm IVS Systolic Thickness 1.4 cm LVPW Diastolic Thickness 1.1 cm 0.6 - 1.0 / 0.6 - 0.9 cm LVPW Systolic Thickness 1.7 cm LV Ejection Fraction 2D Teich 79.7 % LV Ejection Fraction MOD 2C 61.6 % LV Ejection Fraction 2C AL 64.6 % LA Diameter 2.6 cm LA Width 2.9 cm LA Height 2.6 cm RA Width 2.8 cm RA Height 2.3 cm Aorta at Sinotubular Diameter 2.2 cm DOPPLER AV Peak Velocity 97.0 cm/s LVOT Peak Velocity 99.0 cm/s MV Peak Velocity 110.0 cm/s MV Area PHT 3.9 cm squared Mitral E to A Ratio 0.6 MV E' Velocity 73.0 cm/s TR Peak Velocity 147.4 cm/s TR Peak Gradient 8.7 mmHg Right Atrial Pressure 8.0 mmHg Pulmonary Artery Systolic Pressu 16.7 mmHg PV Peak Velocity 91.0 cm/s RV Acceleration Time 0.1 s RV Ejection Time 0.3 s RV AcT/ET 0.5 FINDINGS Left Ventricle Normal left ventricular size, systolic function and wall thickness, with no regional wall motion abnormalities. Left ventricular ejection fraction is estimated at 60%. Grade I diastolic dysfunction (abnormal relaxation filling pattern), normal to mildly elevated filling pressures. Right Ventricle Upper normal right ventricular size and normal systolic function. Right ventricular systolic pressure 24 mmHg. Right Atrium Normal right atrial size. Right atrial pressure estimated at 8 mm Hg. Left Atrium Normal left atrial size. Mitral Valve Structurally normal mitral valve. No mitral valve stenosis. Trace mitral valve regurgitation. Aortic Valve Thickened trileaflet aortic valve. No aortic valve stenosis. No aortic valve regurgitation. Tricuspid Valve Structurally normal tricuspid valve. No tricuspid valve stenosis. Mild tricuspid valve regurgitation. Pulmonic Valve Pulmonic valve not well visualized. Pericardium No pericardial effusion. Aorta Normal size aortic root and proximal ascending aorta. CONCLUSIONS 1. Normal left ventricular size, systolic function and wall thickness, with no regional wall motion abnormalities. Left ventricular ejection fraction is estimated at 60%. Grade I diastolic dysfunction (abnormal relaxation filling pattern), normal to mildly elevated filling pressures. 2. Upper normal right ventricular size and normal systolic function. 3. Pulmonary artery pressure estimated at 24 mm Hg. 4. Mild tricuspid valve regurgitation. 5. When compared to previous echocardiogram dated 12/22/2019, there may not have been any significant change. Angela Gavin MD (Electronically Signed) Final Date: 31 December 2020 19:57 S
== END 2020-12-28 13:52 | disposition home or self-care (01) ==
LOC: US 13:55
PROVIDERS: PCP Nurse Practitioner; Visit Provider Internal Medicine Cardiovascular Disease
DX: R06.02 Shortness of breath (principal); I07.1 Rheumatic tricuspid insufficiency
CPT/HCPCS: 93306

== ENCOUNTER → 2021-02-04 08:17 | Outpatient (BNVA) | payer MEDICARE, SELFPAY | PROVIDERS: PCP Nurse Practitioner; Visit Provider Internal Medicine Cardiovascular Disease | DX: E78.5 Hyperlipidemia, unspecified (principal); I10 Essential (primary) hypertension; J44.9 Chronic obstructive pulmonary disease, unspecified; R06.02 Shortness of breath | CPT/HCPCS: 80048; 83735; 83880 ==

== ENCOUNTER → 2021-02-09 08:11 | Outpatient (BNVA) | payer MEDICARE, SELFPAY | PROVIDERS: PCP Nurse Practitioner; Visit Provider Nurse Practitioner | DX: E11.42 Type 2 diabetes mellitus with diabetic polyneuropathy (principal); I10 Essential (primary) hypertension | CPT/HCPCS: 80053; 80061; 83036; 85025 ==

== ENCOUNTER → 2021-03-02 08:18 | Outpatient (BNVA) | payer MEDICARE, SELFPAY | PROVIDERS: PCP Nurse Practitioner; Visit Provider Internal Medicine Cardiovascular Disease | DX: Z01.812 Encounter for preprocedural laboratory examination (principal); E78.5 Hyperlipidemia, unspecified; I10 Essential (primary) hypertension; J44.9 Chronic obstructive pulmonary disease, unspecified; J84.9 Interstitial pulmonary disease, unspecified; R06.00 Dyspnea, unspecified; Z79.52 Long term (current) use of systemic steroids; Z20.822 Contact with and (suspected) exposure to COVID-19; M34.9 Systemic sclerosis, unspecified; R06.02 Shortness of breath | CPT/HCPCS: 80048; 85025; 85610; 87635 ==

== ENCOUNTER 2021-03-07 07:14 | Outpatient (CLI) | payer MEDICARE, SELFPAY ==
[2021-03-07] VITALS (16 sets, daily range): BP systolic 101–143; BP diastolic 53–81; PULSE 42–97; RESP 13–20; TEMP 36.3; O2SAT 94–99; BMI 30.4
--- NOTE | 2021-03-07 08:09 | XACV_ITS ---
Ht: 150 cm Wt: 68 kg BSA: 1.72 m2 Gender: Female : 1950 Any Known Allergies: Other Exam Priority: Routine Procedure(s): Procedure Description: Diagnostic procedure Procedure Description: Right Heart Catheterization Diagnostic Cath Status: Elective Conclusions 1. Right atrium 5 mmHg 2. RV 36/0 3. mmHg 4. PA mean 22 mmHgPulmonary capillary wedge pressure 4 mmHgCardiac index 2.0Cardiac output by Janna 3.0No significant shunt noted.Step-off noted to be doing RA and PA 7 mmHg 5. . Recommendations * Usual Post cath care. Pressures Phase:Rest AO : / ( -4 ) @ 7:50:00 AM / ( 0 ) @ 7:53:00 AM RV : 36 / 0 / 3 @ 8:22:00 AM PA : 32 / 16 ( 22 ) @ 8:20:00 AM RA : a wave = 9 v wave = 6 mean = 5 @ 8:25:00 AM PCW : a wave = 4 v wave = 5 mean = 4 @ 8:21:00 AM O2 Content Phase:Rest PA : O2 Content O2: 54.1 @ 7:53:00 AM Saturations Phase:Rest AO : 90 @ 7:50:00 AM RA : 47 @ 8:21:00 AM RV : 53 @ 8:20:00 AM PA : 54 @ 7:53:00 AM Cardiac Output Phase:Rest Janna : 3 @ 10:43:38 AM Janna Cardiac Index: 2 @ 10:43:38 AM Flow Phase:Rest Qp : 3 @ 10:43:38 AM Qs : 2 @ 10:43:38 AM Clinical Evaluation EBL: 5mL-10mL Procedural Details Procedure Consent Obtained. Admit Source: Out Patient. Current Diagnosis : Stable angina. Pre-Procedure Time Out. Identified patient by full name and date of as verbalized by the patient/guarantor. Does the consent match the physician's order: Yes. Accurate & Complete Informed Consent: Yes. Inpatient/Outpatient History & Physical on Chart: Yes. If H&P is completed, is and addenduem needed: No; If yes, is the addendum complete: N/A. Visualize and Verify Site with Patient/Guarantor: N/A. Relevant Radiology Images available: N/A. The risks, benefits, and alternatives of sedation and/or procedure were discussed by physician. The patient agrees to continue. Procedure started. [facility] Clinical Fraility Score: 3: Managing Well. 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 Chest Pain Symptom Assessment: Atypical Angina; shortness of breath. Cardiovascular Instability: No, stable. Correct patient, site and procedure confirmed by cath team. Current diagnosis: Unexplained shortness of breath. PERRLA. Strong, equal hand mining consultant bilaterally. Lungs clear x 5 lobes. IV Site on Arrival: 20 gauge in the right anticubital. IV Site on Arrival: 20 gauge in the left anticubital. IV Fluids: 0.9% NaCl at KVO. 0 mL infused prior to quality lab technician. Pre Procedural Pulses: bilateral radial was 3+. Pre Procedural Pulses: bilateral dorsalis pedis was 3+. Pre Procedural Pulses: bilateral posterior tibial was 3+. Oxygen not on as test is RHC. right groin was prepped with chloroprep then draped in the usual sterile fashion. right brachial was prepped with chloroprep then draped in the usual sterile fashion. Baseline sample Acquired. HR: 99 BPM. Physician notified. Family updated by . Equipment: 5F - Radial. Cardiac Cath Pack. ACIST Manifold Kit Model BT 2000. Heparinized Saline (2 units/mL), 1000 mL bag. Equipment: 6F - Radial. Equipment: 5F - Femoral. Equipment: 6F - Femoral. Physician arrived. Physician scrubbed in. Immediate Pre-Procedure Time Out. Correct Patient: Yes; Correct Procedure: Yes; Correct Site: Yes; Correct Patient Position: Yes; Correct Supplies: Yes; Dried Flammable Prep: Yes; Blood Products Available: N/A;. Lidocaine 1% infiltrated to the right brachial. 20 ga right ac line is superficial and not usable for rhc testing. Removed and held pressure at site. Lidocaine 1% infiltrated to the right groin. Venous access obtained with a micropuncture set. Nineveh-Baljit MON catheter inserted. Venous Oxygen samples drawn and sent with respiratory therapy. Oximetry samples were obtained. Normal venous range: 60-85%. Normal arterial range: 95-100%. Pressure measurements obtained. Nineveh-Baljit out. Physician scrubbed out. A Manual Compression was successful obtaining hemostatsis at the Right Femoral vein insertion site. Sheath(s) removed and manual pressure held until hemostasis was achieved. Sterile 4x4 and Op-site applied to the puncture site. No oozing or hematoma noted. Post sheath removal instructions were given and the patient verbalized understanding. Post Procedure: Pulses reassessed and unchanged. PERRLA. Strong, equal hand mining consultant bilaterally. No VTE prophylaxis required. Medication's Wasted: Lidocaine 1% = 15 mL. Medication's Wasted: Heparin = 1000 units. Medication's Wasted: Fentanyl = 75 mcg. Medication's Wasted: Versed = 1 mg. Total IV fluids: 50 mL. Fluoro: 2:00. [id number]. Post-op diagnosis: Normal right heart cath, normal pressures. Complications: None. Estimated blood loss: 5mL-10mL. Procedure completed. Patient transferred by bed to CPRU. Vital chart was stopped. Access Site Site: Right Femoral vein Sheath Size: 6 Fr Hemostasis Method: Manual Compression Hemostasis Success: Successful Procedure Medications Start: 9:53 AM Stop: 9:53 AM Medication: Versed Amount: 0.5 mg Route: I.V. Start: 9:57 AM Stop: 9:57 AM Medication: Versed Amount: 0.5 mg Route: I.V. Start: 10:03 AM Stop: 10:03 AM Medication: Versed Amount: 1 mg Route: I.V. Start: 10:03 AM Stop: 10:03 AM Medication: Fentanyl Amount: 12.5 mcg Route: I.V. Start: 10:15 AM Stop: 10:15 AM Medication: Versed Amount: 0.5 mg Route: I.V. Start: 10:15 AM Stop: 10:15 AM Medication: Fentanyl Amount: 12.5 mcg Route: I.V. Start: 10:27 AM Stop: 10:27 AM Medication: Versed Amount: 0.5 mg Route: I.V. I, the attending physician, have reviewed and verified all procedure medications. Yes, all medications given per verbal order History/Risk Factors Hypertension: Yes Dyslipidemia: Yes Peripheral Arterial Disease (PAD): No Myocardial Infarction (MO): No Obesity: No Renal Disease: No Tobacco Use: Former Prior Interventions PCI: No CABG: No Valve Surgery: No Report Signatures Finalized by Winsome Reagan MD on 04/13/2021 08:17 PM
--- NOTE | 2021-03-07 09:47 | W.PM.OPSFHP ---
Same Day Surgery H&P Indication for Procedure/HPI DATE OF PROCEDURE: March 07, 2021 CHIEF COMPLAINT/INDICATIONFOR SURGICAL PROCEDURE: Worsening of shortness of breath in a patient with scleroderma PREOP DIAGNOSIS: Unexplained shortness of PLANNED PROCEDRUE: Operation Date: 03/07/21 08:30 Proposed Procedures p Cardiac Catheterization(Right) - Winsome Reagan MD 70-year-old female past medical history significant for scleroderma oxygen dependent for unexplained worsening of shortness of breath has been referred to us for right heart cath for possible pulmonary hypertension. Patient has been explained all risk benefit and already for the procedure she has been explained risk for stroke contrast-induced nephropathy vascular surgery thromboembolic phenomena to the lung pulmonary artery rupture. She understood and would like to proceed with it. Medications/Allergies* Home Medications Medication Instructions Recorded Confirmed Type cholecalciferol (vitamin D3) 25 25 mcg PO DAILY@0800 02/02/20 03/07/21 History mcg (1,000 unit) capsule calcium carbonate 600 mg calcium 600 mg PO DAILY 10/19/20 03/07/21 History (1,500 mg) tablet cyanocobalamin (vitamin B-12) 500 500 mcg PO DAILY 10/19/20 03/07/21 History mcg tablet potassium gluconate 595 mg (99 mg) 595 mg PO DAILY 01/26/21 03/07/21 History tablet Allergies/Adverse Reactions Allergy/AdvReac Type Severity Reaction Status Date / Time hydromorphone [From Dilaudid] Allergy Unknown Unknown Verified 01/26/21 09:05 codeine Allergy nausea Verified 01/26/21 09:05 metronidazole [From Flagyl] Allergy gi upset Verified 01/26/21 09:05 morphine Allergy hives Verified 01/26/21 09:05 Sulfa (Sulfonamide Allergy hives Verified 01/26/21 09:05 Antibiotics) Pertinent History/Comorbid Conditions* Medical History (Updated 02/13/21 @ 21:16 by LINSEY Gonzalez) Acid reflux Anxiety and depression Benign hypertension CKD (chronic kidney disease) COPD mixed type Dyslipidemia Fibromyalgia Gastro-esophageal reflux disease without esophagitis Generalized scleroderma High risk medication use ILD (interstitial lung disease) Immunization counseling residential current use of systemic steroids Nocturnal hypoxemia Spondylolisthesis, lumbar region Systemic sclerosis Type 2 diabetes mellitus with diabetic polyneuropathy Surgical History (Updated 05/05/20 @ 09:54 by Slava Hdez MD) History of abdominal surgery 1981 small bowel and gallbladder History of colonoscopy 2018 History of hysterectomy with BSO age 39 History of inguinal hernia Left History of lumbar surgery L4-L5/[place]fixation[place] [place] of mastectomy Bilateral 1989 History of rotator cuff surgery left Family History (Updated 12/22/20 @ 09:19 by Erika Torres LPN) Rheumatoid arthritis Diabetes CAD (coronary artery disease) Alzheimer disease Mother Heart disease Father Cancer Brother Hypertension Family/Other Denies family history of Lupus Chronic kidney disease (CKD) Lung disease Stroke Social History Second hand smoke exposure: Yes Smoking risk assessment/counseling performed?: No Alcohol intake: never Desire information about alcohol rehabilitation?: No Counseling given: No Desire information about substance/drug rehabilitation?: No Counseling given: No Adopted: No Caregiver/support person: No Lives independently: Yes Household members: spouse Housing: House Marital status: Number of children: 1 Current occupational status: retired History of recent travel: No Current gender identity: Female Pertinent Exam Findings alert, oriented x 3 and clear to auscultation bilaterally Conscious Sedation Assessment PATIENT ASSESSED PRIOR TO SEDATION, WITH NO CHANGE NOTED: Yes AIRWAY EVAL/ANESTHESIA PLAN: ASA II and Risks, benefits & alternatives of sedation and/or procedure discussed Recommendations Surgery/Procedure today Coding Level of Care Code Acute Chief Clerk Shelter for Miriam Cunha
[2021-03-07 10:32] LABS: Arterial Blood Gas Hematocrit 42.3 % (37-47); Blood Gas Operator Identificat PULM ARTERY; Blood Gas Sample Site Not specified; Blood Gas Sample Type Not specified; Carboxyhemoglobin 0.2 %THgb (0.4-20.1); HGB O2 Sat 53.4 % (95-100); Methemoglobin 1.1 % (0.4-1.5); Oxygen Device ROOM AIR; Total Hemoglobin 13.8 g/dL (12-16)
[2021-03-07 10:34] LABS: Arterial Blood Gas Hematocrit 42.6 % (37-47); Blood Gas Sample Site Not specified; Blood Gas Sample Type Not specified; Carboxyhemoglobin 0.2 %THgb (0.4-20.1); HGB O2 Sat 51.9 % (95-100); Oxygen Device ROOM AIR; Total Hemoglobin 13.9 g/dL (12-16)
[2021-03-07 10:35] LABS: Arterial Blood Gas Hematocrit 41.2 % (37-47); Blood Gas Operator Identificat RIGHT ATRIUM; Blood Gas Sample Site Not specified; Blood Gas Sample Type Not specified; Carboxyhemoglobin 0.2 %THgb (0.4-20.1); HGB O2 Sat 46.4 % (95-100); Total Hemoglobin 13.5 g/dL (12-16)
[2021-03-07 10:36] LABS: Oxygen Device ROOM AIR
--- NOTE | 2021-03-07 10:57 | PC.NURSE ---
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 groin access used. dressing in place with no hematoma noted. no pain reported by pt. plan to recovery for 4 hrs. will continue to monitor.
--- NOTE | 2021-03-07 14:09 | PC.NURSE ---
pt up to the bathroom. pt complains of no pain. site looks good with no bleeding or hematoma.
== END 2021-03-07 14:43 | disposition home or self-care (01) ==
PROVIDERS: PCP Nurse Practitioner; Visit Provider Internal Medicine Cardiovascular Disease
DX: R06.02 Shortness of breath (principal); M34.9 Systemic sclerosis, unspecified; K21.9 Gastro-esophageal reflux disease without esophagitis; J44.9 Chronic obstructive pulmonary disease, unspecified; E78.5 Hyperlipidemia, unspecified; M79.7 Fibromyalgia; Z79.52 Long term (current) use of systemic steroids; E11.42 Type 2 diabetes mellitus with diabetic polyneuropathy; E11.22 Type 2 diabetes mellitus with diabetic chronic kidney disease; I12.9 Hypertensive chronic kidney disease with stage 1 through stage 4 chronic kidney disease, or unspecified chronic kidney disease; N18.9 Chronic kidney disease, unspecified; Z82.49 Family history of ischemic heart disease and other diseases of the circulatory system; Z83.3 Family history of diabetes mellitus
CPT/HCPCS: 36415; 82810; 93451; C1751; C1769; C1894; J1644; J2250; J3010; J7030

== ENCOUNTER → 2021-03-29 12:34 | Outpatient (BNVA) | payer MEDICARE, SELFPAY | PROVIDERS: PCP Nurse Practitioner; Visit Provider Internal Medicine Rheumatology | DX: M34.9 Systemic sclerosis, unspecified (principal); J84.9 Interstitial pulmonary disease, unspecified; I27.20 Pulmonary hypertension, unspecified; Z79.899 Other long term (current) drug therapy; M19.90 Unspecified osteoarthritis, unspecified site; Z71.89 Other specified counseling | CPT/HCPCS: 99214 ==

== ENCOUNTER → 2021-05-03 08:52 | Outpatient (BNVA) | payer MEDICARE, SELFPAY | PROVIDERS: PCP Nurse Practitioner; Visit Provider Nurse Practitioner | DX: E11.42 Type 2 diabetes mellitus with diabetic polyneuropathy (principal); I10 Essential (primary) hypertension | CPT/HCPCS: 80053; 80061; 81000; 83036 ==

== ENCOUNTER → 2021-05-06 09:39 | Outpatient (BNVA) | payer MEDICARE, SELFPAY | PROVIDERS: PCP Nurse Practitioner; Visit Provider Nurse Practitioner Family | DX: Z20.822 Contact with and (suspected) exposure to COVID-19 (principal); Z11.59 Encounter for screening for other viral diseases | CPT/HCPCS: 87635 ==

== ENCOUNTER → 2021-07-19 08:57 | Outpatient (BNVA) | payer MEDICARE, SELFPAY | PROVIDERS: PCP Nurse Practitioner; Visit Provider Nurse Practitioner | DX: M34.9 Systemic sclerosis, unspecified (principal); I10 Essential (primary) hypertension; K21.9 Gastro-esophageal reflux disease without esophagitis; M43.16 Spondylolisthesis, lumbar region; L74.9 Eccrine sweat disorder, unspecified; F32.9 Major depressive disorder, single episode, unspecified; F41.9 Anxiety disorder, unspecified; E78.5 Hyperlipidemia, unspecified; E11.42 Type 2 diabetes mellitus with diabetic polyneuropathy | CPT/HCPCS: 80053 ==

== ENCOUNTER → 2021-08-02 12:37 | Outpatient (BNVA) | payer MEDICARE, SELFPAY | PROVIDERS: PCP Nurse Practitioner; Visit Provider Internal Medicine Rheumatology | DX: M34.9 Systemic sclerosis, unspecified (principal); J84.9 Interstitial pulmonary disease, unspecified; Z79.899 Other long term (current) drug therapy; M19.90 Unspecified osteoarthritis, unspecified site; Z71.89 Other specified counseling | CPT/HCPCS: 99214 ==

== ENCOUNTER → 2021-08-03 08:32 | Outpatient (BNVA) | payer MEDICARE, SELFPAY | PROVIDERS: PCP Nurse Practitioner; Visit Provider Internal Medicine Rheumatology | DX: M43.16 Spondylolisthesis, lumbar region (principal); Z79.899 Other long term (current) drug therapy | CPT/HCPCS: 80076; 82565; 85025; 86140 ==

== ENCOUNTER → 2021-11-29 12:16 | Outpatient (BNVA) | payer MEDICARE, SELFPAY | PROVIDERS: PCP Nurse Practitioner; Visit Provider Internal Medicine Rheumatology | DX: M34.9 Systemic sclerosis, unspecified (principal); J84.9 Interstitial pulmonary disease, unspecified; Z79.899 Other long term (current) drug therapy; M19.90 Unspecified osteoarthritis, unspecified site; Z71.89 Other specified counseling; I27.20 Pulmonary hypertension, unspecified; Z87.891 Personal history of nicotine dependence | CPT/HCPCS: 99214 ==

== ENCOUNTER → 2021-11-30 08:44 | Outpatient (BNVA) | payer MEDICARE, SELFPAY | PROVIDERS: PCP Nurse Practitioner; Visit Provider Internal Medicine Rheumatology | DX: J84.9 Interstitial pulmonary disease, unspecified (principal); M43.16 Spondylolisthesis, lumbar region; Z79.899 Other long term (current) drug therapy; M19.90 Unspecified osteoarthritis, unspecified site; Z71.89 Other specified counseling; M34.9 Systemic sclerosis, unspecified | CPT/HCPCS: 80076; 82085; 82550; 82552; 82565; 85025; 85651; 86140 ==

== ENCOUNTER → 2021-12-07 08:17 | Outpatient (BNVA) | payer MEDICARE, SELFPAY | PROVIDERS: PCP Nurse Practitioner; Visit Provider Internal Medicine Rheumatology | DX: R74.8 Abnormal levels of other serum enzymes (principal); M34.9 Systemic sclerosis, unspecified; J84.9 Interstitial pulmonary disease, unspecified; Z79.899 Other long term (current) drug therapy | CPT/HCPCS: 82085; 82550; 82552; 85651; 86140 ==

== ENCOUNTER 2021-12-09 10:04 | Outpatient (CLI) | payer MEDICARE, SELFPAY ==
[2021-12-09 10:34] LABS: Basophils % 0.3 %; Eosinophils # 0.3 10^3/uL (0.0-0.8); Eosinophils % 3.5 %; Hematocrit 41.3 % (37.0-47.0); Hemoglobin 12.6 g/dL (11.5-15.3); Lymphocytes # 1.7 10^3/uL (0.8-4.8); Lymphocytes % 23.7 %; Mean Corpuscular HGB Conc 30.5 g/dL (30.0-36.0); Mean Corpuscular Volume 91.8 fl (81-99); Mean Platelet Volume 9.7 fL (7.4-10.4); Monocytes # 0.7 10^3/uL (0.2-0.9); Monocytes % 9.1 %; Neutrophils # 4.54 10^3/uL (1.8-7.7); Neutrophils % 63.1 %; Nucleated Red Blood Cells % 0 %; Platelet Count 371 10^3/cmm (130-400); Red Cell Distribution Width 12.7 % (12.1-15.1); White Blood Count 7.2 10^3/uL (4.0-10.0)
[2021-12-09 10:58] LABS: Alanine Aminotransferase 18 U/L (0-33); Albumin Level 4.8 g/dL (3.5-5.2); Alkaline Phosphatase 135 U/L (35-105); Aspartate Amino Transferase 24 U/L (0-32); C Reactive Protein 6.3 mg/L (0.0-4.9); Globulin 2.9 g/dL (1.3-4.6); Glomerular Filtration Rate 61.9 mL/min (90-130); Total Bilirubin 0.2 mg/dL (0.15-1.2); Total Protein 7.7 g/dL (6.6-8.7)
[2021-12-13 11:24] LABS: CENTROMERE B ANTIBODY <1.0 NEG AI (<1.0 NEG); JO-1 ANTIBODY <1.0 NEG AI (<1.0 NEG); RNP ANTIBODY <1.0 NEG AI (<1.0 NEG); SCL-70 ANTIBODY <1.0 NEG AI (<1.0 NEG); SJOGREN'S ANTIBODY (SS-A) <1.0 NEG AI (<1.0 NEG); SM ANTIBODY <1.0 NEG AI (<1.0 NEG); SS-B <1.0 NEG AI (<1.0 NEG)
[2021-12-13 12:24] LABS: COMPLEMENT, TOTAL (CH50) >60 U/mL (31-60)
[2021-12-13 14:08] LABS: THYROID PEROXIDASE ANTIBODIES <1 IU/mL (<9)
[2021-12-13 14:18] LABS: ANA SCREEN, IFA NEGATIVE (NEGATIVE)
[2021-12-13 14:32] LABS: COMPLEMENT COMPONENT C3C 196 mg/dL (83-193); COMPLEMENT COMPONENT C4C 42 mg/dL (15-57)
[2021-12-13 18:23] LABS: HMGCR IgG Antibody <2 CU (<20)
[2021-12-14 12:14] LABS: DNA AB (DS) CRITHIDIA,IFA NEGATIVE (NEGATIVE)
[2021-12-15 00:37] LABS: Myositis EJ AB <11 SI (<11); Myositis JO-1 AB <11 SI (<11); Myositis MDA-5 AB <11 SI (<11); Myositis MI-2 Alpha AB <11 SI (<11); Myositis MI-2 Beta AB <11 SI (<11); Myositis NXP-2AB 14 SI (<11); Myositis OJ AB <11 SI (<11); Myositis PL-12 AB <11 SI (<11); Myositis PL-7 AB <11 SI (<11); Myositis SRP AB <11 SI (<11); Myositis TIF-1y AB <11 SI (<11)
== END 2021-12-09 10:05 | disposition home or self-care (01) ==
LOC: LAB 10:06
PROVIDERS: PCP Nurse Practitioner; Visit Provider Internal Medicine Rheumatology
DX: R74.8 Abnormal levels of other serum enzymes (principal); J84.9 Interstitial pulmonary disease, unspecified; M34.9 Systemic sclerosis, unspecified; M43.16 Spondylolisthesis, lumbar region; Z79.899 Other long term (current) drug therapy; R76.8 Other specified abnormal immunological findings in serum; M60.9 Myositis, unspecified
CPT/HCPCS: 36415; 80076; 81401; 82565; 83520; 84182; 85025; 86140; 86160; 86162; 86235; 86255; 86376

== ENCOUNTER → 2021-12-22 08:23 | Outpatient (BNVA) | payer MEDICARE, SELFPAY | PROVIDERS: PCP Nurse Practitioner; Visit Provider Nurse Practitioner | DX: E11.42 Type 2 diabetes mellitus with diabetic polyneuropathy (principal); I10 Essential (primary) hypertension | CPT/HCPCS: 80053; 80061; 84443 ==

== ENCOUNTER 2022-01-04 07:36 | Outpatient (CLI) | payer MEDICARE, SELFPAY ==
--- NOTE | 2022-01-04 08:00 | CT_ITS ---
WS: [id number] CT RIGHT SHOULDER, NONCONTRAST, 3-D REFORMATS. HISTORY: M19.90 - Unspecified osteoarthritis, unspecified site Technique: All CT scans at [facility] use at least one of these dose optimization techniques: automated exposure control; mA and/or kV adjustment per patient size (includes targeted exams where dose is matched to clinical indication); or iterative reconstruction. DLP: 578.22 mGy.cm COMPARISON: None available. No acute fracture or dislocation. Moderate AC joint space narrowing with mild hypertrophic osteophyte s. Small subchondral cystic changes and bone hypertrophy at the AC joint. Humeral head is high riding and abuts the undersurface of the acromion. Mild hypertrophic bone format ion surrounding the humeral head. Moderate atrophy involving the supraspinatus, infraspinatus and sub scapularis muscles. The subscapularis tendon due to position of the humeral head may be torn and retr acted. No obvious joint effusion. Mild remodeling of the glenoid. Paraseptal emphysematous changes in the visualized RIGHT lung. Areas of bronchiectasis and interstiti al thickening. 10 mm RIGHT thyroid nodule. Small mediastinal lymph nodes are identified. CT/CT shoulder RT wo con* [id number] IMPRESSION: 1. High riding RIGHT humeral head abuts the undersurface of the acromion. 2. Moderate hypertrophic bone formation surrounding the humeral head with dante deling of the glenoid. Changes of osteoarthritis. 3. Atrophy supraspinatus, infraspinatus and subscapularis muscles. Likely thes e tendons are all torn and retracted. 4. Paraseptal emphysema RIGHT upper lobe.
--- NOTE | 2022-01-04 08:30 | CT_ITS ---
WS: [id number] CT RIGHT HUMERUS, NONCONTRAST HISTORY: Chronic arthritis. Technique: All CT scans at [facility] use at least one of these dose optimization techniques: automated exposure control; mA and/or kV adjustment per patient size (includes targeted exams where dose is matched to clinical indication); or iterative reconstruction. DLP: 2574.65 mGy-cm. COMPARISON: None available. Hypertrophic bone formation surrounding the humeral head. Mild remodeling of the glenoid. Humeral hea d is high riding abutting the undersurface of the acromion. Muscle atrophy surrounding the humeral he ad. No fractures or loose bodies. Cortex of the humerus is intact. No destructive bone lesions or fra ctures. There are very tiny foci of increased density involving the medial and lateral epicondyles. P robably from prior avulsion fractures or calcific depositions. No acute fracture. The alignment remai ns normal. No significant joint effusion at the elbow. CT/CT humerus RT wo con* [id number] IMPRESSION: 1. Negative RIGHT humerus or fracture. 2. Moderate osteoarthritic changes at the glenohumeral joint. 3. No significant joint effusion or displacement at the elbow.
--- NOTE | 2022-01-04 08:30 | CT_ITS ---
WS: [id number] CT RIGHT FOREARM, NONCONTRAST, 3-D IMAGING. HISTORY: M19.90 - Unspecified osteoarthritis, unspecified site Technique: All CT scans at [facility] use at least one of these dose optimization techniques: automated exposure control; mA and/or kV adjustment per patient size (includes targeted exams where dose is matched to clinical indication); or iterative reconstruction. DLP: 2574.65 mGy-cm. COMPARISON: None available. No fractures or dislocation. No destructive bone lesions. Very mild degenerative changes at the elbow joint. Subchondral cystic changes in the ulnar styloid. Moderate arthritis at the STT articular surf aquilino. No soft tissue abnormalities are identified. CT/CT forearm RT wo con* [id number] IMPRESSION: 1. No acute fracture or bone destruction. 2. Very minimal osteoarthritis at the elbow joint. 3. Moderate STT joint arthritis.
== END 2022-01-04 07:37 | disposition home or self-care (01) ==
PROVIDERS: PCP Nurse Practitioner; Visit Provider Internal Medicine Rheumatology
DX: M19.90 Unspecified osteoarthritis, unspecified site (principal); G72.49 Other inflammatory and immune myopathies, not elsewhere classified; M34.9 Systemic sclerosis, unspecified; R29.898 Other symptoms and signs involving the musculoskeletal system; M25.511 Pain in right shoulder; J43.8 Other emphysema
CPT/HCPCS: 73200

== ENCOUNTER → 2022-01-05 08:26 | Outpatient (BNVA) | payer MEDICARE, SELFPAY | PROVIDERS: PCP Nurse Practitioner; Visit Provider Internal Medicine Rheumatology | DX: M19.90 Unspecified osteoarthritis, unspecified site (principal); M34.9 Systemic sclerosis, unspecified; Z79.899 Other long term (current) drug therapy; I10 Essential (primary) hypertension | CPT/HCPCS: 82085; 82550; 85651; 86140 ==

== ENCOUNTER → 2022-01-25 09:11 | Outpatient (BNVA) | payer MEDICARE, SELFPAY | PROVIDERS: PCP Nurse Practitioner; Visit Provider Internal Medicine Rheumatology | DX: M34.9 Systemic sclerosis, unspecified (principal); G72.49 Other inflammatory and immune myopathies, not elsewhere classified; Z79.899 Other long term (current) drug therapy; J84.9 Interstitial pulmonary disease, unspecified; Z71.89 Other specified counseling; I73.00 Raynaud's syndrome without gangrene; M19.90 Unspecified osteoarthritis, unspecified site; I27.20 Pulmonary hypertension, unspecified; Z87.891 Personal history of nicotine dependence; Z87.11 Personal history of peptic ulcer disease; K21.9 Gastro-esophageal reflux disease without esophagitis; K22.0 Achalasia of cardia | CPT/HCPCS: 99214 ==

== ENCOUNTER → 2022-02-06 09:11 | Outpatient (BNVA) | payer MEDICARE, SELFPAY | PROVIDERS: PCP Nurse Practitioner; Visit Provider Internal Medicine Rheumatology | DX: M60.9 Myositis, unspecified (principal); Z79.899 Other long term (current) drug therapy; G72.49 Other inflammatory and immune myopathies, not elsewhere classified | CPT/HCPCS: 82085; 82550; 85651; 86140 ==

== ENCOUNTER → 2022-04-25 10:19 | Outpatient (BNVA) | payer MEDICARE, SELFPAY | PROVIDERS: PCP Nurse Practitioner; Visit Provider Nurse Practitioner | DX: E11.8 Type 2 diabetes mellitus with unspecified complications (principal); N18.30 Chronic kidney disease, stage 3 unspecified; F32.9 Major depressive disorder, single episode, unspecified; M43.16 Spondylolisthesis, lumbar region; E11.42 Type 2 diabetes mellitus with diabetic polyneuropathy; F41.9 Anxiety disorder, unspecified; Z79.899 Other long term (current) drug therapy | CPT/HCPCS: 80053; 80061; 80076; 81000; 82085; 82550; 82552; 82565; 83036; 84443; 85025; 85651; 86140 ==

== ENCOUNTER → 2022-04-26 09:53 | Outpatient (BNVA) | payer MEDICARE, SELFPAY | PROVIDERS: PCP Nurse Practitioner; Visit Provider Internal Medicine Rheumatology | DX: M34.9 Systemic sclerosis, unspecified (principal); G72.49 Other inflammatory and immune myopathies, not elsewhere classified; Z79.899 Other long term (current) drug therapy; J84.9 Interstitial pulmonary disease, unspecified; Z71.89 Other specified counseling | CPT/HCPCS: 99214 ==

== ENCOUNTER → 2022-07-24 08:48 | Outpatient (BNVA) | payer MEDICARE, SELFPAY | PROVIDERS: PCP Nurse Practitioner; Visit Provider Internal Medicine Rheumatology | DX: M19.90 Unspecified osteoarthritis, unspecified site (principal); Z79.899 Other long term (current) drug therapy; E11.42 Type 2 diabetes mellitus with diabetic polyneuropathy; M34.9 Systemic sclerosis, unspecified; G72.49 Other inflammatory and immune myopathies, not elsewhere classified | CPT/HCPCS: 80048; 80076; 82085; 82550; 83036; 85025; 85651; 86140 ==

== ENCOUNTER → 2022-07-26 09:34 | Outpatient (BNVA) | payer MEDICARE, SELFPAY | PROVIDERS: PCP Nurse Practitioner; Visit Provider Internal Medicine Rheumatology | DX: M34.9 Systemic sclerosis, unspecified (principal); G72.49 Other inflammatory and immune myopathies, not elsewhere classified; J84.9 Interstitial pulmonary disease, unspecified; Z71.89 Other specified counseling; Z79.899 Other long term (current) drug therapy; M19.90 Unspecified osteoarthritis, unspecified site | CPT/HCPCS: 36415; 80076; 85025; 99214 ==

== ENCOUNTER → 2022-08-23 09:54 | Outpatient (BNVA) | payer MEDICARE, SELFPAY | PROVIDERS: PCP Nurse Practitioner; Visit Provider Nurse Practitioner | DX: R41.3 Other amnesia (principal); Z12.83 Encounter for screening for malignant neoplasm of skin; E11.42 Type 2 diabetes mellitus with diabetic polyneuropathy | CPT/HCPCS: 80053 ==

== ENCOUNTER → 2022-09-27 09:28 | Outpatient (BNVA) | payer MEDICARE, SELFPAY | PROVIDERS: PCP Nurse Practitioner; Referring Provider Nurse Practitioner; Visit Provider Nurse Practitioner Family | DX: L57.0 Actinic keratosis (principal); L82.0 Inflamed seborrheic keratosis; L81.4 Other melanin hyperpigmentation; L57.8 Other skin changes due to chronic exposure to nonionizing radiation; D22.5 Melanocytic nevi of trunk; Z71.89 Other specified counseling; L82.1 Other seborrheic keratosis; Z85.828 Personal history of other malignant neoplasm of skin; Z87.891 Personal history of nicotine dependence | CPT/HCPCS: 17000; 17110; 69100; 99203 ==

== ENCOUNTER → 2022-11-06 11:43 | Outpatient (BNVA) | payer MEDICARE, SELFPAY | PROVIDERS: PCP Nurse Practitioner; Visit Provider Nurse Practitioner | DX: E78.5 Hyperlipidemia, unspecified (principal) | CPT/HCPCS: 80053; 80061; 85025 ==

== ENCOUNTER → 2022-11-29 08:17 | Outpatient (BNVA) | payer MEDICARE, SELFPAY | PROVIDERS: PCP Nurse Practitioner; Referring Provider Nurse Practitioner; Visit Provider Psychiatry & Neurology Neurology | DX: R41.3 Other amnesia (principal); R40.4 Transient alteration of awareness | CPT/HCPCS: 99203 ==

== ENCOUNTER → 2022-12-07 09:59 | Outpatient (BNVA) | payer MEDICARE, SELFPAY | PROVIDERS: PCP Nurse Practitioner; Referring Provider Psychiatry & Neurology Neurology; Visit Provider Psychiatry & Neurology Neurology | DX: R41.0 Disorientation, unspecified (principal) | CPT/HCPCS: 95813 ==

== ENCOUNTER 2022-12-13 07:57 | Outpatient (CLI) | payer MEDICARE, SELFPAY ==
--- NOTE | 2022-12-13 08:45 | USCV_ITS ---
Yazmin Mcneil Age: 72 Gender: F : 1950 Exam Date: 12/13/2022 08:11 Ordering Phys: Ronnell Kebede MD Technologist: Roxane Gandhi [place] [facility] [place] Indication: SUGGESTION OF TIA WITH CONFUSION Risk Factors: Smoker Previous Vascular Surgery: None Right Brachial BP: / Left Brachial BP: / Right Left Velocity (cm/s) Spectral Plaque Velocity (cm/s) Spectral Plaque Syst/Diast Broadening Syst/Diast Broadening 73.90/ 29.80 Prox CCA 77.00 / 24.90 93.70/ 28.70 Mid CCA 44.00 / 12.90 50.60/ 21.70 Hetro Distal CCA 39.30 / 13.50 40.70/ 12.30 Prox ICA 67.70 / 25.70 45.70/ 18.90 Mid ICA 67.00 / 25.10 56.10/ 16.70 Distal ICA 80.60 / 30.50 110.30 ECA 67.70 0.60 ICA/CCA 1.83 Antegrade Vertebral Antegrade 61.10/ 18.90 cm/s 65.00/ 23.70 cm/s Bi Subclavian Tri 146.3 115.1 0 0 FINDINGS Intimal thickening and minimal plaques in the common carotid, bifurcation and internal carotid arteries bilaterally Antegrade flow in the vertebral arteries bilaterally. Near normal Doppler flow velocities in the external carotid and subclavian arteries bilaterally CONCLUSIONS Intimal thickening and minimal plaques at the common carotid, bifurcation and internal carotid arteries bilaterally, suggesting less than 50% stenosis. No significant stenosis in the external carotid, subclavian and vertebral arteries, based on the above findings. Dr Phylicia Gracia MD [facility] (Electronically Signed) Final Date: 13 December 2022 08:44 S
== END 2022-12-13 07:58 | disposition home or self-care (01) ==
PROVIDERS: PCP Nurse Practitioner; Visit Provider Psychiatry & Neurology Neurology
DX: G45.9 Transient cerebral ischemic attack, unspecified (principal); I77.9 Disorder of arteries and arterioles, unspecified; F17.200 Nicotine dependence, unspecified, uncomplicated
CPT/HCPCS: 93880

== ENCOUNTER → 2023-01-23 16:41 | Outpatient (BNVA) | payer MEDICARE, SELFPAY | PROVIDERS: PCP Nurse Practitioner; Visit Provider Nurse Practitioner | DX: E11.42 Type 2 diabetes mellitus with diabetic polyneuropathy (principal); M34.9 Systemic sclerosis, unspecified; M43.16 Spondylolisthesis, lumbar region | CPT/HCPCS: 80053; 80061; 83036 ==

== ENCOUNTER → 2023-03-21 16:16 | Outpatient (BNVA) | payer MEDICARE, SELFPAY | PROVIDERS: PCP Nurse Practitioner; Visit Provider Nurse Practitioner | DX: E11.42 Type 2 diabetes mellitus with diabetic polyneuropathy (principal) | CPT/HCPCS: 80053; 80061; 81000; 83036 ==

== ENCOUNTER → 2023-06-06 10:34 | Outpatient (BNVA) | payer MEDICARE, SELFPAY | PROVIDERS: PCP Nurse Practitioner; Visit Provider Nurse Practitioner | DX: N39.0 Urinary tract infection, site not specified (principal) | CPT/HCPCS: 81000 ==

== ENCOUNTER → 2023-06-08 08:13 | Outpatient (BNVA) | payer MEDICARE, SELFPAY | PROVIDERS: PCP Nurse Practitioner; Visit Provider Nurse Practitioner | DX: E11.42 Type 2 diabetes mellitus with diabetic polyneuropathy (principal); N18.30 Chronic kidney disease, stage 3 unspecified; E11.22 Type 2 diabetes mellitus with diabetic chronic kidney disease; I12.9 Hypertensive chronic kidney disease with stage 1 through stage 4 chronic kidney disease, or unspecified chronic kidney disease | CPT/HCPCS: 80053; 80061; 82550; 83036; 85025 ==

== ENCOUNTER 2023-06-21 11:46 | Outpatient (CLI) | payer MEDICARE, SELFPAY ==
--- NOTE | 2023-06-21 12:00 | CT_ITS ---
WS: [id number] CT chest wo con [id number] HISTORY: J44.9 - Chronic obstructive pulmonary disease, unspecified TECHNIQUE: Axial imaging performed through the thorax. Coronal and sagittal reformats are submitted. All CT scans at [facility] use at least one of these dose optimization techniques: automated exposure control; mA and/or kV adjustment per patient size (includes targeted exams where dose is mat ched to clinical indication); or iterative reconstruction. CONTRAST: None DLP: 223.74 mGy.cm COMPARISON: 10/06/2020 Lungs and central airway: Low lung volumes. Bilateral interstitial and groundglass opacifications in the upper and lower lung peguero. There are few scattered subpleural cysts. Mild traction bronchiectas is at the RIGHT lung base. No areas of dense consolidation. No mass or nodule. Pleura: Normal. No pleural effusion. Heart and pericardium: Moderate cardiomegaly. No pericardial effusion. Mediastinum and antony: Small mediastinal and hilar lymph nodes. No adenopathy. The esophagus is not di lated or fluid-filled. There is mild thickening distally of a hiatal hernia. Postsurgical changes are also noted at the GE junction. Vessels: Moderate atherosclerosis aorta. Pulmonary artery size is normal. Chest wall and lower neck: 8 mm RIGHT thyroid nodule. Upper abdomen: Pneumobilia, status post cholecystectomy. No adrenal mass. Hepatic and splenic granulo cardenas. Osseous structures: Mild increase in the thoracic kyphosis. Remote healed fractures RIGHT lateral rib cage. IMPRESSION: 1. Chronic appearing interstitial lung disease. Pattern is nonspecific and may be related to patient 's scleroderma. 2. No acute pneumonia. 3. No esophageal dilatation. There is a small hiatal hernia. 4. No significant mediastinal or hilar adenopathy. 5. Normal size pulmonary artery. 6. Mild cardiomegaly. 7. Pneumobilia and prior cholecystectomy are stable.
== END 2023-06-21 11:47 | disposition home or self-care (01) ==
LOC: RAD 11:47
PROVIDERS: PCP Nurse Practitioner; Visit Provider Nurse Practitioner
DX: J44.9 Chronic obstructive pulmonary disease, unspecified (principal); J84.9 Interstitial pulmonary disease, unspecified; I51.7 Cardiomegaly
CPT/HCPCS: 71250

== ENCOUNTER 2023-06-27 06:58 | Outpatient (CLI) | payer MEDICARE, SELFPAY ==
--- NOTE | 2023-06-27 07:30 | US_ITS ---
WS: [id number] Bilateral renal ultrasound, 06/27/2023 Clinical Data: N18.30 - Chronic kidney disease, stage 3 unspecified Comparison: Renal ultrasound, 02/04/2013 Findings: The right kidney measures 7.6 cm x 3.8 cm x 4.9 cm and the left kidney is 7.5 cm x 3.6 cm x 4.2 cm. T here are no cysts, masses or hydronephrosis. The renal cortical margins measure 1.0 cm on the right a nd 1.1 cm on the left. No renal calculi are seen. The abdominal aorta shows no vascular abnormalities. The abdominal aorta measures 0.9 cm The bladder was scanned and demonstrates irregularity but no bladder wall masses or intraluminal defe cts. Impression: Small bilateral kidneys.
== END 2023-06-27 06:59 | disposition home or self-care (01) ==
LOC: RAD 06:58
PROVIDERS: PCP Nurse Practitioner; Visit Provider Nurse Practitioner
DX: N18.30 Chronic kidney disease, stage 3 unspecified (principal)
CPT/HCPCS: 76770

== ENCOUNTER 2023-11-07 08:42 | Outpatient (CLI) | payer MEDICARE, SELFPAY ==
--- NOTE | 2023-11-07 09:00 | US_ITS ---
WS: [id number] ULTRASOUND THYROID TECHNIQUE: Ultrasound of the thyroid. CLINICAL INFORMATION: E04.1 - Nontoxic single thyroid nodule COMPARISON: Chest CT 06/21/2023 and ultrasound 2019 FINDINGS: Thyroid: Right and left thyroid lobes are normal in size and echotexture. Right thyroid lobe: 4.0 cm x 1.8 cm x 1.9 cm Well-circumscribed hypoechoic nodule inferior RIGHT thyroid measuring 1.4 x 1.0 x 1.1 cm. This is unc hanged since 2019. Left thyroid lobe: 3.0 cm x 1.1 cm x 1.2 cm. Isthmus: 0.3 mm. Cervical lymphadenopathy: None. US/US thyroid [id number] IMPRESSION: Well-circumscribed hypoechoic nodule inferior RIGHT thyroid measuring 1.4 x 1.0 x 1.1 cm. This is unchanged since 2019. No other visualized thyroid nodules to day. TIRADS Category 4: Moderately suspicious (total points = 4) FNA if e1.5 cm Follow if e1 cm (at 1, 2, 3, and 5 years)
== END 2023-11-07 08:43 | disposition home or self-care (01) ==
LOC: RAD 08:42
PROVIDERS: PCP Nurse Practitioner; Visit Provider Nurse Practitioner
DX: E04.1 Nontoxic single thyroid nodule (principal)
CPT/HCPCS: 76536

== ENCOUNTER → 2024-02-27 12:15 | Outpatient (BNVA) | payer MEDICARE, SELFPAY | PROVIDERS: PCP Nurse Practitioner; Visit Provider Nurse Practitioner | DX: E11.9 Type 2 diabetes mellitus without complications (principal) | CPT/HCPCS: 80053; 80061; 82607; 83036 ==

== ENCOUNTER → 2024-06-04 08:15 | Outpatient (BNVA) | payer MEDICARE, SELFPAY | PROVIDERS: PCP Nurse Practitioner; Visit Provider Nurse Practitioner | DX: E11.9 Type 2 diabetes mellitus without complications (principal) | CPT/HCPCS: 80053; 80061; 82607; 83036; 84443; 85025 ==

== ENCOUNTER → 2024-11-17 15:08 | Outpatient (BNVA) | payer MEDICARE, SELFPAY | PROVIDERS: PCP Nurse Practitioner; Visit Provider Nurse Practitioner | DX: E78.5 Hyperlipidemia, unspecified (principal); E55.9 Vitamin D deficiency, unspecified | CPT/HCPCS: 80053; 80061; 82306; 82550; 82553; 83735; 85025; 85651; 86140 ==

== ENCOUNTER 2024-11-20 08:08 | Outpatient (CLI) | payer MEDICARE, SELFPAY ==
--- NOTE | 2024-11-20 08:30 | US_ITS ---
WS: [email or web address] THYROID ULTRASOUND HISTORY: E04.1 - Nontoxic single thyroid nodule COMPARISON: 12/30/2018, 11/07/2023 Right lobe: 1.7 cm x 1.7 cm x 3.7 cm (w x ap x l). Volume: 5.1 cm3. Normal sized gland. Low-attenuation nodule with increased vascularity is reidentified in the mid RIGHT thyroid. This nodule measures 1.4 x 0.7 x 1.5 cm. No echogenic foci. Nodule has slightly increased in size since 2019. There is an additional smaller adjacent nodule measuring 1.3 x 0.5 x 0.9 cm. Left lobe: 0.9 cm x 1.3 cm x 3.9 cm (w x ap x l). Volume: 2.1 cm3. Normal size and echotexture. No significant or dominant nodules are present. Isthmus: 0.3 cm. US/US thyroid [id number] IMPRESSION: 1. Thyroids 4; moderately suspicious RIGHT thyroid nodule. This nodule has bee n present since 2019 with only slight increase in size. Nodule of concern is 1. 4 x 0.7 x 1.5 cm. Given the ultrasound appearance this is suspicious for thyroi d neoplasm. Recommend ultrasound-guided FNA. 2. No left-sided thyroid nodules.
== END 2024-11-20 08:09 | disposition home or self-care (01) ==
LOC: RAD 08:10
PROVIDERS: PCP Nurse Practitioner; Visit Provider Nurse Practitioner
DX: E04.1 Nontoxic single thyroid nodule (principal)
CPT/HCPCS: 76536

== ENCOUNTER 2024-11-21 14:04 | Outpatient (CLI) | payer MEDICARE, SELFPAY ==
--- NOTE | 2024-11-21 14:30 | XR_ITS ---
WS: [email or web address] SCREENING DEXA SCAN [employer] CLINICAL INFORMATION: Z78.0 - Asymptomatic menopausal state COMPARISON: 2020 FINDINGS: The LEFT forearm bone mineral density measures 0.625. This corresponds to a T score score of -2.9 and Z score of -0.8. Left femoral neck bone mineral density measures 0.952 g/cm2. This corresponds to a T score of -0.4 and Z score of 1.3. Right femoral neck bone mineral density measures 0.911 g/cm2. This corresponds to a T score -0.8of and Z score of 1.0. Mean femoral neck bone mineral density measures 0.932 g/cm2. This corresponds to a T score of -0.6 and Z score of 1.2. XR/XR DEXA axial skeleton* [id number] IMPRESSION: Osteoporosis LEFT forearm. Normal bone mineralization femoral necks. Patient's FRAX calculated 10 year probability for major osteoporotic fracture i s 20.2% and osteoporotic hip fracture is 3.4%. Bone density LEFT forearm decreased -15.9% Bone density femoral necks decreased -5.6%
== END 2024-11-21 14:05 | disposition home or self-care (01) ==
LOC: RAD 14:05
PROVIDERS: PCP Nurse Practitioner; Visit Provider Nurse Practitioner
DX: Z12.2 Encounter for screening for malignant neoplasm of respiratory organs (principal); Z78.0 Asymptomatic menopausal state; M80.032A Age-related osteoporosis with current pathological fracture, left forearm, initial encounter for fracture
CPT/HCPCS: 77080

== ENCOUNTER 2024-12-11 11:40 | Outpatient (CLI) | payer MEDICARE, SELFPAY ==
--- NOTE | 2024-12-11 12:15 | US_ITS ---
WS: [email or web address] ULTRASOUND THYROID FNA CLINICAL INFORMATION: E04.1 - Nontoxic single thyroid nodule TECHNIQUE: Ultrasound-guided FNA FINDINGS: The procedure including risks, benefits, and complications were discussed with the patient who agreed to proceed. Timeout was performed. Using sterile technique patient was prepped and draped in usual sterile fashion. After 1% lidocaine, using ultrasound guidance, a 25-gauge needle was advanced into the RIGHT thyroid nodule. 5 passes were made. Pathology was present for slide preparation. No immediate complications. Patient remained in the ultrasound suite 10 minutes postprocedure with intermittent ultrasound to ensure no hematoma. No hematoma 10 minutes postprocedure. US/US biopsy/FNA thyroid [id number] IMPRESSION: 1. Uncomplicated ultrasound-guided thyroid FNA RIGHT thyroid nodule 2. Cytology is pending
== END 2024-12-11 11:41 | disposition home or self-care (01) ==
LOC: RAD 11:43
PROVIDERS: PCP Nurse Practitioner; Visit Provider Nurse Practitioner
DX: E04.1 Nontoxic single thyroid nodule (principal)
CPT/HCPCS: 10005; 88173

== ENCOUNTER 2025-01-21 15:37 | Outpatient (CLI) | payer SELFPAY ==
--- NOTE | 2025-01-21 16:30 | CT_ITS ---
WS: [email or web address] CT chest wo con [id number] REASON FOR EXAM: J44.9 - Chronic obstructive pulmonary disease, unspecified IV CONTRAST ADMINISTERED: None TECHNIQUE: . Multiple axial images of the chest without intravenous contrast. Coronal and sagittal reconstructions. COMPARISON EXAMINATION: CT scan of the chest without contrast 06/21/2023. TOTAL EXAM DLP: 232.[address] scans at [facility] use at least one of these dose optimization techniques: automated exposure control; mA and/or kV adjustment per patient size (includes targeted exams where dose is matched to clinical indication); or iterative reconstruction. FINDINGS: The CT of the chest is unchanged compared to the previous examination. There is paraseptal emphysema in the upper and lower lobes of both lungs. There are coarse reticular interstitial changes in the lung parenchyma and vague patchy areas of groundglass density. No definite bronchiectasis. No significant lung nodule or lung mass. No acute pulmonary parenchymal or pleural abnormality. CT/CT chest wo con [id number] IMPRESSION: Stable abnormal lungs as above. The interstitial component of this lung disease may be the primary problem as the lungs appear to be of decreased volume withi n appearance of retraction in the lower lobes.
== END 2025-01-21 15:38 | disposition home or self-care (01) ==
LOC: RAD 15:38
PROVIDERS: PCP Nurse Practitioner; Visit Provider Nurse Practitioner
DX: J44.9 Chronic obstructive pulmonary disease, unspecified (principal); R91.8 Other nonspecific abnormal finding of lung field; E04.1 Nontoxic single thyroid nodule
CPT/HCPCS: 71250

== ENCOUNTER → 2025-01-22 08:41 | Outpatient (BNVA) | payer MEDICARE, SELFPAY | PROVIDERS: PCP Nurse Practitioner; Referring Provider Nurse Practitioner; Visit Provider Internal Medicine | DX: J84.9 Interstitial pulmonary disease, unspecified (principal); J44.89 Other specified chronic obstructive pulmonary disease; M34.9 Systemic sclerosis, unspecified; I27.20 Pulmonary hypertension, unspecified; Z99.81 Dependence on supplemental oxygen; Z87.891 Personal history of nicotine dependence; J44.9 Chronic obstructive pulmonary disease, unspecified | CPT/HCPCS: 99204; Q3014 ==

== ENCOUNTER → 2025-02-10 08:43 | Outpatient (BNVA) | payer MEDICARE, SELFPAY | PROVIDERS: PCP Nurse Practitioner; Visit Provider Internal Medicine Rheumatology | DX: G72.49 Other inflammatory and immune myopathies, not elsewhere classified (principal); M34.9 Systemic sclerosis, unspecified; J84.9 Interstitial pulmonary disease, unspecified; Z79.899 Other long term (current) drug therapy; Z71.85 Encounter for immunization safety counseling; M19.90 Unspecified osteoarthritis, unspecified site; I27.20 Pulmonary hypertension, unspecified; R53.1 Weakness | CPT/HCPCS: 99214 ==

== ENCOUNTER → 2025-02-11 10:20 | Outpatient (BNVA) | payer MEDICARE, SELFPAY | PROVIDERS: PCP Nurse Practitioner; Visit Provider Nurse Practitioner | DX: M34.9 Systemic sclerosis, unspecified (principal) | CPT/HCPCS: 80076; 82085; 82550; 82565; 85025; 85651; 86140 ==

== ENCOUNTER 2025-02-19 13:33 | Outpatient (CLI) | payer MEDICARE, SELFPAY ==
[2025-02-19 14:28] VITALS: PULSE 88; RESP 18; O2SAT 91
--- NOTE | 2025-02-19 14:50 | XR_ITS ---
WS: [email or web address] Exam: XR lumbar spine 2-3V* [id number] Date/Time of Exam: 02/19/2025 2:51 PM Reason For Exam: M43.16 - Spondylolisthesis, lumbar region DLP: Comparison 11/21/2019. Posterior fusion of the spine at L4-5 is unchanged in alignment. Again noted is grade 1 spondylolisthesis of L4 on L5 that is stable. No sign of hardware complication. Facet arthropathy at all levels. Angular dextroscoliosis. Degenerative disc changes and osteopenia. Scoliosis and degenerative changes are progressive since the last study. XR/XR lumbar spine 2-3V* [id number] IMPRESSION: 1. Stable appearing L4-5 posterior fusion with grade 1 spondylolisthesis of L4 on L5. 2. Progressive degenerative changes and increased dextroscoliosis since prior s tudy.
== END 2025-02-19 13:34 | disposition home or self-care (01) ==
PROVIDERS: PCP Nurse Practitioner; Visit Provider Internal Medicine
DX: J44.9 Chronic obstructive pulmonary disease, unspecified (principal); M43.16 Spondylolisthesis, lumbar region; M43.26 Fusion of spine, lumbar region; M41.80 Other forms of scoliosis, site unspecified
CPT/HCPCS: 72100; 94060; 94726; 94729; J7613

== ENCOUNTER → 2025-02-26 09:09 | Outpatient (BNVA) | payer MEDICARE, SELFPAY | PROVIDERS: PCP Nurse Practitioner; Visit Provider Internal Medicine | DX: J84.9 Interstitial pulmonary disease, unspecified (principal); J44.89 Other specified chronic obstructive pulmonary disease; M34.9 Systemic sclerosis, unspecified; J47.9 Bronchiectasis, uncomplicated; I27.20 Pulmonary hypertension, unspecified; Z99.81 Dependence on supplemental oxygen; Z87.891 Personal history of nicotine dependence | CPT/HCPCS: 99214; Q3014 ==

== ENCOUNTER 2025-03-24 07:53 | Outpatient (CLI) | payer MEDICARE, SELFPAY ==
--- NOTE | 2025-03-24 08:30 | USCV_ITS ---
Yazmin Mcneil Age: 74 Gender: F : 1950 Exam Date: 03/24/2025 08:37 Ordering Phys: Arpit Logan MD Technologist: Exam Location: [facility] [place] Indication: cp sob BP: 120 / 70 HR: 76 Rhythm: Sinus Technical Quality: Adequate MEASUREMENTS (Male / Female) Normal Values 2D ECHO LV Diastolic Diameter PLAX 3.7 cm 4.2 - 5.9 / 3.9 - 5.3 cm IVS Diastolic Thickness 1.3 cm 0.6 - 1.0 / 0.6 - 0.9 cm IVS Systolic Thickness 1.8 cm LVPW Diastolic Thickness 1.0 cm 0.6 - 1.0 / 0.6 - 0.9 cm LVPW Systolic Thickness 1.3 cm LVOT Diameter 1.9 cm LV Ejection Fraction 2D Teich 70.0 % LV Ejection Fraction MOD 4C 67.1 % LV Ejection Fraction MOD 2C 57.9 % LV Ejection Fraction 2C AL 56.6 % LA Diameter 4.3 cm RA Systolic Volume 4C AL 12.9 ml RA Systolic Volume 4C MOD 12.5 ml Aorta at Sinotubular Diameter 3.0 cm M-MODE LA Ao Ratio MM 1.4 AV Cusp Separation MM 1.8 cm DOPPLER AV Peak Velocity 128.0 cm/s LVOT Peak Velocity 85.0 cm/s AV Area Cont Eq vti 1.8 cm squared AV Area Cont Eq pk 1.9 cm squared MV Area PHT 3.3 cm squared Mitral E to A Ratio 0.7 TV Peak Velocity 340.5 cm/s TR Peak Velocity 352.0 cm/s TR Peak Gradient 49.6 mmHg TV Peak E Velocity 139.0 cm/s PV Peak Velocity 120.0 cm/s FINDINGS Left Ventricle Normal left ventricular size and systolic function, EF 67%.mild left ventricular hypertrophy. Mild left ventricular hypertrophy. No regional wall motion abnormalities. Grade I/IV diastolic dysfunction (abnormal relaxation filling pattern), normal to mildly elevated filling pressures. Right Ventricle Normal right ventricular size and systolic function. Right Atrium Normal right atrial size. Left Atrium Moderately increased left atrial size. IA Septum Normal appearance of the interatrial septum. Mitral Valve Mild mitral annular calcification. Trace mitral valve regurgitation. Aortic Valve Normal aortic valve structure. No aortic valve stenosis or regurgitation. Tricuspid Valve Moderate tricuspid valve regurgitation. Estimated pulmonary artery peak systolic pressure 53 mmHg Pulmonic Valve No gross abnormalities noted Pericardium No pericardial effusion. Aorta Normal aortic annulus size. IVC Inferior vena cava not visualized. CONCLUSIONS Normal left ventricular size and systolic function, EF 67%.mild left ventricular hypertrophy. Mild left ventricular hypertrophy. No regional wall motion abnormalities. Grade I/IV diastolic dysfunction (abnormal relaxation filling pattern), normal to mildly elevated filling pressures. Moderately increased left atrial size. Mild mitral annular calcification. Trace mitral valve regurgitation. Normal aortic valve structure. No aortic valve stenosis or regurgitation. Moderate tricuspid valve regurgitation. Estimated pulmonary artery peak systolic pressure 53 mmHg. There is no pericardial effusion. There are no intracardiac masses. Compared to the study from 12/28/2020, there may not be a significant change Dr Phylicia Gracia MD FACC (Electronically Signed) Final Date: 25 March 2025 09:36 S
== END 2025-03-24 07:54 | disposition home or self-care (01) ==
PROVIDERS: PCP Nurse Practitioner; Visit Provider Internal Medicine
DX: R06.00 Dyspnea, unspecified (principal); I51.89 Other ill-defined heart diseases; I51.7 Cardiomegaly; I36.1 Nonrheumatic tricuspid (valve) insufficiency; I34.81 Nonrheumatic mitral (valve) annulus calcification; I34.0 Nonrheumatic mitral (valve) insufficiency; I37.8 Other nonrheumatic pulmonary valve disorders
CPT/HCPCS: 93306